=== PATIENT | male | born 1945 | race Caucasian/White ===

== ENCOUNTER 2020-10-18 18:10 | Inpatient (IN) | payer OTHER, MEDICARE, SELFPAY ==
[2020-10-18 18:34] VITALS: BP 127/77; PULSE 118; RESP 22; TEMP 36.7; O2SAT 95; BMI 16.7
--- NOTE | 2020-10-18 20:03 | XRR_ITS ---
PROCEDURE INFORMATION: Exam: XR Left Hip Exam date and time: 10/18/2020 8:03 PM Age: 75 years old Clinical indication: Injury or trauma; Fall; Blunt trauma (contusions or hematomas); Left; Hip; Injury details: Moving boxes fell over on him TECHNIQUE: Imaging protocol: XR Left hip. Views: 2 or 3 views hip with pelvis when performed. Total images: 2 COMPARISON: No relevant prior studies available. FINDINGS: Bones/joints: Mildly displaced intertrochanteric fracture left hip. Mild compression deformity L4 which appears antecedent. Soft tissues: Unremarkable. XR/XR hip LT 2-3V wo/w pel* [id number] IMPRESSION: Mildly displaced intertrochanteric fracture left hip.
--- NOTE | 2020-10-18 20:06 | W.ED.FALL ---
HPI - Fall General: Chief Complaint: Fall Stated Complaint: LEG PAIN POST FALL Time Seen by Provider: 10/18/20 19:48 History of Present Illness: HPI Narrative: 75-year-old gentleman who fell while moving objects out of the back of a truck. He fell from a standing position onto pavement. He is complaining of left lower extremity pain. He localizes the pain mainly to the thigh. He says that he cannot bear weight. He also states that mattress hit him in the head when it fell, but is not complaining of any headache or neurologic symptoms. He did not get knocked out. complaint: fall Onset (ago): hour(s) Fall from: standing Place fall occurred: home Loss of consciousness: None Symptoms prior to fall: none Context: other Location of injury - extremities: Left: thigh Associated symptoms-after fall: Reports no associated symptoms; Denies abdominal pain, chest pain or headache(s) Review of Systems Const: Denies: fever(s) Eyes: Denies: change in vision Card: Denies: chest pain or palpitations Resp: Denies: dyspnea or wheezing GI: Denies: abdominal pain or vomiting Neuro: Denies: headache(s) or dizziness PFSH ED PFSH: Medical History Atelectasis of left lung No pertinent past medical history Surgical History History of hernia surgery History of lung surgery Family History Denies family history of CAD (coronary artery disease) Family history of premature coronary artery disease Social History Smoking and tobacco status: never smoked Alcohol intake: never Substance/Drug Use: never Housing: House Physical Exam Const: GENERAL APPEARANCE: cooperative and frail appearing NUTRITIONAL APPEARANCE: thin ORIENTATION/CONSCIOUSNESS: Yes oriented to person, Yes oriented to place and Yes oriented to time HENMT: COMMON NORMALS: external ears normal and Normal external nose present FACE & SINUS: normal facial exam NOSE: Normal external nose present and No nasal discharge present EXTERNAL EAR: Yes external ears normal Eye: COMMON NORMALS: Equal, round and reactive pupils present, EOMs intact bilaterally and conjunctivae normal EYELID: eyelids normal CONJUNCTIVA: Yes conjunctivae normal PUPIL: Yes Equal, round and reactive pupils present Neck/C-Spine: COMMON NORMALS: full ROM GENERAL: No tracheal deviation CERVICAL SPINE: Yes normal cervical lordosis and No Cervical spine tenderness Chest: COMMONS NORMALS: normal inspection of the chest CHEST: No tenderness Resp: EFFORT & INSPECTION: No tachypneic, No respiratory distress, No retractions, No uses accessory muscles and No tracheal deviation AUSCULTATION: no rhonchi and no wheezes Cardio: COMMON NORMALS: regular rate and regular rhythm RATE: regular rate RHYTHM: regular rhythm HEART SOUNDS: no murmurs PERIPHERAL PULSES: radial pulses present GI: INSPECTION: No abdominal distension AUSCULTATION: No Hyperactive bowel sounds present and No Hypoactive bowel sounds present PALPATION: No Guarding due to palpation present (GI) and No Rigid due to palpation PERCUSSION: no dullness to percussion and no tympanic to percussion Neuro: SENSORIUM/ORIENTATION: Yes oriented to person, Yes oriented to place and Yes oriented to time Psych: COMMON NORMALS: mental status grossly normal Skin: NARRATIVE SKIN EXAM: Small abrasion to the frontal scalp. Small abrasion to the left wrist and elbow. Course Consultations: Consultation #1: Irina Time: 21:06 Consultation #2: Barrera Time: 21:09 Vital Signs: Vital signs: Vital Signs Temperature 98.1 F 10/18/20 22:41 Pulse Rate 93 10/18/20 22:41 Respiratory Rate 17 10/18/20 22:41 Blood Pressure 129/72 10/18/20 22:41 Pulse Oximetry 94 10/18/20 22:41 MDM - Fall MDM Narrative: Medical decision making narrative: 75-year-old male who fell on pavement. He has a intertrochanteric left hip fracture. Labs appear stable. On chest x-ray for clearance, he has a large tension pneumothorax. The patient told us about this prior, and it is several years old. He has actually had a successful hernia surgery despite his pneumothorax which is chronic. Orthopedic surgery, and hospitalist notified. Hospitalist has seen the patient in the ER. Lab Data: Labs: Lab Results 10/18/20 10/18/20 10/18/20 Range/Units 21:04 21:04 21:04 WBC 10.7 H (4.0-10.0) 10^3/ uL RBC 4.71 (4.1-5.3) 10^6/u L Hgb 14.4 (11.7-16.6) g/dL Hct 45.6 (42.0-52.0) % MCV 96.8 H (80-94) fL MCH 30.6 (28.0-34.0) pg MCHC 31.6 (30.0-36.0) g/dL RDW 13.8 (12.1-15.1) % Plt Count 155 (130-400) 10^3/c mm MPV 10.4 (7.4-10.4) fL Neut % (Auto) 83.3 % Lymph % (Auto) 7.6 % [place] % (Auto) 8.3 % Eos % (Auto) 0.0 % Baso % (Auto) 0.4 % Neut # (Auto) 8.89 H (1.8-7.7) 10^3/u L Lymph # (Auto) 0.8 (0.8-4.8) 10^3/u L [place] # (Auto) 0.9 (0.2-0.9) 10^3/u L Eos # (Auto) 0.0 (0.0-0.8) 10^3/u L Baso # (Auto) 0.0 (0.0-0.1) 10^3/u L Nucleated RBC % (a uto) 0 % Nucleated RBCs # 0.0 /100WBC PT 13.70 (12.1-14.9) SECO NDS INR 1.02 (0.8-1.2) APTT 21.5 L (23.9-36.7) SECO NDS Sodium 138 (136-145) mmol/L Potassium 4.4 (3.5-5.1) mmol/L Chloride 100 (98-107) mmol/L Carbon Dioxide 28 (22-29) mmol/L Anion Gap 14.4 (5-19) BUN 14 (8-23) mg/dL Creatinine 0.8 (0.7-1.2) mg/dL GFR Calculation Not Reportable Glucose 146 H (65-115) mg/dL Calculated Osmolal ity 289 (285-295) mOsm/k g Calcium 9.4 (8.5-10.5) mg/dL Magnesium 1.8 (1.7-2.3) mg/dL Total Bilirubin 0.7 (0.15-1.2) mg/dL AST 23 (0-40) U/L ALT 17 (0-41) U/L Alkaline Phosphata se 67 (40-130) IU/L NT-Pro-B Natriuret Pep (0-125) pg/mL Total Protein 7.4 (6.6-8.7) g/dL Albumin 4.1 (3.5-5.2) g/dL Globulin 3.3 (1.3-4.6) g/dL TSH (0.27-4.20) uIU/ mL 10/18/20 10/18/20 Range/Units 21:04 21:04 WBC (4.0-10.0) 10^3/ uL RBC (4.1-5.3) 10^6/u L Hgb (11.7-16.6) g/dL Hct (42.0-52.0) % MCV (80-94) fL MCH (28.0-34.0) pg MCHC (30.0-36.0) g/dL RDW (12.1-15.1) % Plt Count (130-400) 10^3/c mm MPV (7.4-10.4) fL Neut % (Auto) % Lymph % (Auto) % [place] % (Auto) % Eos % (Auto) % Baso % (Auto) % Neut # (Auto) (1.8-7.7) 10^3/u L Lymph # (Auto) (0.8-4.8) 10^3/u L [place] # (Auto) (0.2-0.9) 10^3/u L Eos # (Auto) (0.0-0.8) 10^3/u L Baso # (Auto) (0.0-0.1) 10^3/u L Nucleated RBC % (a uto) % Nucleated RBCs # /100WBC PT (12.1-14.9) SECO NDS INR (0.8-1.2) APTT (23.9-36.7) SECO NDS Sodium (136-145) mmol/L Potassium (3.5-5.1) mmol/L Chloride (98-107) mmol/L Carbon Dioxide (22-29) mmol/L Anion Gap (5-19) BUN (8-23) mg/dL Creatinine (0.7-1.2) mg/dL GFR Calculation Glucose (65-115) mg/dL Calculated Osmolal ity (285-295) mOsm/k g Calcium (8.5-10.5) mg/dL Magnesium (1.7-2.3) mg/dL Total Bilirubin (0.15-1.2) mg/dL AST (0-40) U/L ALT (0-41) U/L Alkaline Phosphata se (40-130) IU/L NT-Pro-B Natriuret Pep 208 H (0-125) pg/mL Total Protein (6.6-8.7) g/dL Albumin (3.5-5.2) g/dL Globulin (1.3-4.6) g/dL TSH 0.85 (0.27-4.20) uIU/ mL Discharge Plan Discharge Patient Disposition: Admitted As Inpatient Admit Provider: Pj Rust Coding Level of Care Code ED Deputy Sheriff Generalist/Bailiff for Chg Fwd Exam Comprehensive
--- NOTE | 2020-10-18 20:51 | XRR_ITS ---
PROCEDURE INFORMATION: Exam: XR Chest Exam date and time: 10/18/2020 8:51 PM Age: 75 years old Clinical indication: Screening exam; Pre-operative exam; Other: Clearance TECHNIQUE: Imaging protocol: XR of the chest. Views: 1 view. Total images: 1 COMPARISON: No relevant prior studies available. FINDINGS: Lungs: Right lung without visible evidence for active interstitial or alveolar airspace disease. COPD/chronic bronchitis. Senile fibrosis. Evidence of antecedent granulomatous disease. Pleural spaces: Examination reveals a large left tension pneumothorax. Near complete collapse of the left lung. Mediastinal shift to the right. Heart/Mediastinum: Cardiac structures and configuration with arteriosclerosis. Microcardia. Bones/joints: Unremarkable. XR/XR chest 1V portable [id number] IMPRESSION: Large left tension pneumothorax.
--- NOTE | 2020-10-18 20:52 | ECG_ITS ---
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 Measurements Intervals [place] Rate: 92 P: 64 VT: 141 QRS: 66 QRSD: 93 T: 56 QT: 338 QTc: 418 Interpretive Statements SINUS RHYTHM No previous ECG available for comparison Electronically Signed On 10-19-2020 7:21:33 CDT by Sally Eller M.D. [id number]
[2020-10-18 21:01] VITALS: BP 127/64; PULSE 107; RESP 19; O2SAT 96
[2020-10-18] MEDS: ondansetron 2 mg/ML SDV 2 mL 4 MG IVP (21:05)
[2020-10-18] MEDS: sodium chloride 0.9% 500 ML IV (21:05)
[2020-10-18] MEDS: morphine 4 mg/mL SDV 1 mL IVP (21:05)
--- NOTE | 2020-10-18 21:11 | P.HP_ITS ---
Providers/Chief Complaint Chief Complaint: LEG PAIN POST FALL History of Present Illness Ian Matt is a 75 year old male who endorses history of left lung pneumothorax and atelectasis after [place] fever in [place], he does not have any other significant past medical history, no coronary artery disease, CHF NV stroke, cancer, or diabetes presented today after sustaining a fall. Patient is stating that in 2019 he underwent left inguinal hernia repair, he required chest tube placement for pneumothorax(patient is stating that surgeon delayed surgery because of his pneumothorax until he developed inguinal hernia incarceration) however he was discharged from the hospital after his surgery within 4 days without any other postop complications. 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 He was brought t o the ER for further evaluation., He was diagnosed with left intertrochanteric hip fracture., Chest x-ray showing pneumothorax. I requested EKG, CBC BMP unremarkable. Patient hemodynamically stable, Dr. Arevalo notified and consulted. Review of Systems Const: Denies: fever(s) Eyes: Denies: change in vision ENMT: Denies: throat pain Card: Denies: chest pain Resp: Denies: dyspnea GI: Denies: abdominal pain : Denies: flank pain Musc: Reports: joint pain and limited range of motion; Denies: neck pain Skin/Breast: Denies: rash Neuro: Denies: headache(s) Psych: Denies: anxiety Endo: Denies: polyuria Morgan/Lymph: Denies: easy bruising All/Imm: Denies: urticaria Medications/Allergies Allergies Allergy/AdvReac Type Severity Reaction Status Date / Time No Known Allergies Allergy Verified 10/18/20 18:49 PFSH Acute PFSH: Medical History Atelectasis of left lung No pertinent past medical history Surgical History History of hernia surgery History of lung surgery Family History Denies family history of CAD (coronary artery disease) Family history of premature coronary artery disease Social History Smoking and tobacco status: never smoked Alcohol intake: never Substance/Drug Use: never Housing: House Vitals/I&O/Wt Last Vital Signs Temp 98.1 F 10/18/20 18:34 Pulse 107 H 10/18/20 21:01 Resp 19 H 10/18/20 21:01 BP 127/64 10/18/20 21:01 Pulse Ox 96 10/18/20 21:01 Weight last 48 hrs Weight 58.967 kg Physical Exam Narrative: EXAM NARRATIVE: elderly male Who saturating well on room air blood pressure 129/72 mmHg he is afebrile no active distress No head laceration EOMI, PERRLA No neurological deficits S1, S2 distant however no murmur appreciated No sign of heart failure Abdomen soft nontender Low symmetry no edema gangrene ulcer No lower extremity vascular compromise Bilateral breath sounds, diminished airflow left greater than right, chest is not silent during my auscultation Appropriate mood and affect Data : 10/18/20 21:04 10/18/20 21:04 A&P Assessment and plan (1) Hip fracture, left: Left hip fracture Patient sustained a fall while he was unloading furniture from a truck No previous history of NV, CHF, stroke, As per NSQIP estimated length of stay 3.5 to 4 days, He considers himself fairly active for his age, he can take flight of stairs however gets short of breath with prolonged period of exertion, I would like to get echo in the morning before the procedure I am going to obtain records from his hospital in [place] to collect objective evidence of chronic pneumothorax, Chest x-ray does show pneumothorax however he is not hemodynamically unstable, he is saturating well on room air, he has no respiratory distress no JVD will consult clinical research management associate for evaluation of chest tube placement to reduce perioperative complications Would recommend echo and pulmonary consult before his procedure, Dr. Arevalo is planning to operate around 10AM. I will inform fusion juncture grinder and clinical research management associate sports team marketing intern. Status: Acute Attestations Medical Necessity Statement*: Anticipating stay in the hospital cross more than 2 midnights for management of left hip fracture Time Spent in Patient Care: 40mins Coding Level of Care Code Acute Underlay Stitcher for Chg Fwd Diagnoses Hip fracture, left S71.473C
[2020-10-18 21:22] LABS: Basophils % 0.4 %; Hematocrit 45.6 % (42.0-52.0); Hemoglobin 14.4 g/dL (11.7-16.6); Lymphocytes # 0.8 10^3/uL (0.8-4.8); Lymphocytes % 7.6 %; Mean Corpuscular HGB Conc 31.6 g/dL (30.0-36.0); Mean Corpuscular Hemoglobin 30.6 pg (28.0-34.0); Mean Corpuscular Volume 96.8 fL (80-94); Mean Platelet Volume 10.4 fL (7.4-10.4); Monocytes # 0.9 10^3/uL (0.2-0.9); Monocytes % 8.3 %; Neutrophils # 8.89 10^3/uL (1.8-7.7); Neutrophils % 83.3 %; Nucleated Red Blood Cells % 0 %; Platelet Count 155 10^3/cmm (130-400); Red Blood Count 4.71 10^6/uL (4.1-5.3); Red Cell Distribution Width 13.8 % (12.1-15.1); White Blood Count 10.7 10^3/uL (4.0-10.0)
[2020-10-18 21:36] LABS: INR 1.02 (0.8-1.2)
[2020-10-18 21:37] LABS: Partial Thromboplastin Time 21.5 SECONDS (23.9-36.7)
[2020-10-18 21:40] LABS: Alanine Aminotransferase 17 U/L (0-41); Albumin Level 4.1 g/dL (3.5-5.2); Alkaline Phosphatase 67 IU/L (40-130); Aspartate Amino Transferase 23 U/L (0-40); Blood Urea Nitrogen 14 mg/dL (8-23); Calcium 9.4 mg/dL (8.5-10.5); Carbon Dioxide 28 mmol/L (22-29); Chloride 100 mmol/L (98-107); Globulin 3.3 g/dL (1.3-4.6); Glucose 146 mg/dL (65-115); Magnesium 1.8 mg/dL (1.7-2.3); Osmolality Calculated 289 mOsm/kg (285-295); Sodium 138 mmol/L (136-145); Total Bilirubin 0.7 mg/dL (0.15-1.2); Total Protein 7.4 g/dL (6.6-8.7)
[2020-10-18 21:44] LABS: Anion Gap 14.4 (5-19); Potassium 4.4 mmol/L (3.5-5.1)
[2020-10-18 22:06] LABS: Thyroid Stimulating Hormone 0.85 uIU/mL (0.27-4.20)
[2020-10-18 22:13] LABS: Add Urine Microscopic? YES; Bilirubin Urine Neg (Negative); Blood Urine 2+ (Negative); Glucose Urine UA Norm (Normal); Ketones Urine 1+ (Negative); Leukocyte Esterase Urine Negative (Negative); Nitrate Urine Negative (Negative); Protein Urine Neg (Negative); Specific Gravity, Urine 1.015 (1.005-1.030); Urine Appearance Clear (CLEAR); Urine Color Yellow (Yellow); Urobilinogen Urine Norm (Negative); pH Urine 5 (5-7)
[2020-10-18 22:15] LABS: Add Urine Culture? Yes; Bacteria Urine TRACE /hpf; Sperm Urine 1+ /hpf; Squamous Epithelial Cell Urine 0-4 /hpf (0-5); WBC Urine 0-4 /hpf (0-5)
[2020-10-18 22:34] LABS: NT Pro B Type Natriuretic Pept 208 pg/mL (0-125)
[2020-10-18 22:41] VITALS: BP 129/72; PULSE 93; RESP 17; TEMP 36.7; O2SAT 94
[2020-10-18] MEDS: dextrose 5%-sod chloride 0.45% 1,000 ML 30 ML IV (22:41)
--- NOTE | 2020-10-18 23:41 | ECG_ITS ---
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 Measurements Intervals [place] Rate: 91 P: 66 TN: 135 QRS: 59 QRSD: 92 T: 63 QT: 338 QTc: 417 Interpretive Statements SINUS RHYTHM Compared to ECG 10/18/2020 21:32:46 No significant changes Electronically Signed On 10-20-2020 9:46:56 CDT by Monroe Clarke M.D. [id number]
[2020-10-19] VITALS (35 sets, daily range): BP systolic 89–135; BP diastolic 58–74; PULSE 71–107; RESP 13–34; TEMP 36.4–36.9; O2SAT 90–100
--- NOTE | 2020-10-19 | SCC_ITS ---
Procedure Done: Open reduction internal fixation left intertrochanteric hip fracture internal fixation left 133.6 seconds of fluoroscopic guidance, for a cumulative dose of 9.50 mGy, was provided to Dr. Arevalo by the radiology department. C-arm images of the LEFT hip were saved for the patient's permanent record. [facility]
--- NOTE | 2020-10-19 00:03 | CTR_ITS ---
PROCEDURE INFORMATION: Exam: CT Chest Without Contrast; Diagnostic Exam date and time: 10/19/2020 12:03 AM Age: 75 years old Clinical indication: Condition or disease; Lung condition and disease; Chronic/persistent air leak; Patient HX: Patient has a left pneumothorax x 5-6 years, . having RT hip surgery tomorrow morning TECHNIQUE: Imaging protocol: Diagnostic computed tomography of the chest without contrast. Radiation optimization: All CT scans at this facility use at least one of these dose optimization techniques: automated exposure control; mA and/or kV adjustment per patient size (includes targeted exams where dose is matched to clinical indication); or iterative reconstruction. COMPARISON: CR (CHEST, ) 10/18/2020 9:00 PM RADIATION DOSE METRICS: Total DLP (mGy-cm): 533.08 FINDINGS: Lungs: Small residual aerated left lung. Pleural spaces: Moderate posterior left pleural fluid collection with essentially 100% left pneumothorax. Heart: Large tension hydropneumothorax with shift of the heart and mediastinum to the right and depressed left hemidiaphragm. Severe calcified coronary artery disease. Aorta: Unremarkable. No aortic aneurysm. Lymph nodes: Unremarkable. No enlarged lymph nodes. Kidneys and ureters: One or more nonobstructing left renal calyceal stones. Bones/joints: Dextroscoliosis. Soft tissues: Unremarkable. CT/CT chest wo con [id number] IMPRESSION: 1. Large tension hydropneumothorax with shift of the heart and mediastinum to the right and depressed left hemidiaphragm. 2. Moderate posterior left pleural fluid collection with essentially 100% left pneumothorax. 3. Small residual aerated left lung. Radiation Dose CTDIVOL = (mGy): DLP = 533.08 (mGy-cm)
--- NOTE | 2020-10-19 01:39 | PC.NURSE ---
0130 - Admitted to ICU room 2 from room 266 on Med surg floor as ordered. Transferred to ICU bed, patient reports moderate pain to left hip with movement. Connected to drafting layout man, full assessment done. Patient notified of move to ICU -2. Patient states that he just wants to get some sleep. Call light placed at patients side and instructed to call for any needs.
[2020-10-19] MEDS: dextrose 5%-sod chloride 0.45% 1,000 ML 30 ML IV (03:23)
[2020-10-19] MEDS: morphine 4 mg/mL SDV 1 mL 2 MG IVP ×2 (06:37→21:17)
--- NOTE | 2020-10-19 06:57 | XRR_ITS ---
PROCEDURE INFORMATION: Exam: XR Chest Exam date and time: 10/19/2020 6:57 AM Age: 75 years old Clinical indication: Device placement; Chest tube; Additional info: Chest tube placement TECHNIQUE: Imaging protocol: XR of the chest. Views: 1 view. COMPARISON: CT chest con [id number] 10/19/2020 12:46 AM FINDINGS: Lungs/pleural spaces: Interval placement of left-sided pleural drain. There remains a large left hydropneumothorax compressing the left lung. Degree of pneumothorax is improved since prior but still at least 50%. The right lung is well expanded, again with coarsened interstitial markings but no focal consolidation. No visible effusion or pneumothorax on the right. Surgical clips again noted along the left posterior thorax (projecting just lateral to the aortic knob but noted to be along the posterior pleura on CT). Heart/Mediastinum: No abnormal cardiomediastinal shift. Bones/joints: Unremarkable. XR/XR chest 1V portable [id number] IMPRESSION: Interval placement of left pleural drainage catheter with some improvement in large hydropneumothorax. The left lung remains compressed.
--- NOTE | 2020-10-19 07:04 | PM.ACPR ---
Procedure/Consent Time out: Time Out Performed: Yes Consent: Consent for Procedure: Consent obtained from patient Procedure Narrative: Name of the procedure: Left sided chest tube placement under ultrasound guidance. Indication: Large pneumothorax in the setting of positive pressure ventilation that will be required for left hip fracture surgery Medications: Lidocaine 1% 10 mL. Consent: Obtained from patient. Description of the procedure: An ultrasound was performed to evaluate for lack of pleural movement. The M-mode ultrasound revealed barcode sign consistent with a diagnosis of pneumothorax. The skin, subcutaneous tissue and the pleura was anesthetized with 1% lidocaine. Needle was advanced till air bubbles are noted. Using Seldinger technique the left-sided chest tube was put in. The chest tube was secured with suture and transparent dressing. Sample: The left-sided pleural fluid was sent for cell count and differential, Gram stain culture, AFB stain and culture, fungal stain and culture, pH, glucose, LDH, total protein, triglyceride. Complications: None. Acute Procedures Epistaxis Control: Time out performed: Yes
--- NOTE | 2020-10-19 07:14 | PM.CONSULT ---
Providers/Reason For Consult Consulting Physician/Specialty*: Pulmonary critical care medicine Reason for Consult*: Left-sided pneumothorax Attending Physician: Pj Rust MD History of Present Illness History of Present Illness Ian Matt is a 75 year old male who presented to the hospital after sustaining left hip fracture while moving his furniture from the truck. 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 After he presented to the hospital, a chest x-ray was obtained and the patient was seen to have a large left-sided pneumothorax with some evidence of mediastinal shift to the right. However, the patient was not very symptomatic. His blood pressure was stable, he was not tachycardic and oxygen saturation was normal. The patient underwent a CT scan of the chest as well. There is a large left-sided pneumothorax with near total collapse of the left lung. 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 This diagnosis was made from the pleural biopsy. The patient in 2019 underwent an inguinal hernia surgery. The patient tells me that when he was evaluated prior to the surgery he was found to have a left-sided pneumothorax. He underwent chest tube placement for the hernia surgery. However, his lung never completely expanded. He followed up with the distribution engineering technologist and was told that no intervention was necessary in the lung was not going to expand. 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 Unfortunately, I do not have any of these record or radiologic images. It is difficult for me to ascertain whether the degree of pneumothorax that is present today was the same from 2 years ago or whether there is new worsening compared to before. The patient was seen and examined in the ICU. The patient was resting comfortably. He is tentatively scheduled for his hip surgery later today. Review of Systems Narrative: General: No fevers chills night sweats or fatigue Skin: No rash HEENT: No nasal congestion, rhinitis, sinusitis, sneezing, hoarseness of voice Neck: There is no neck swelling, mass or swollen glands. Respiratory: No cough, sputum production or wheezing, mild shortness of breath especially with exertion. Cardiovascular: No chest pain, orthopnea or paroxysmal nocturnal dyspnea, no palpitation palpitation or lower extremity edema. Gastrointestinal: No abdominal pain, nausea, vomiting Musculoskeletal: Limited range of motion in the left hip Neurological: Patient is awake alert and oriented x3, no paralysis, gross motor function is normal except left lower extremity. Psychiatric: No anxiety or depression Meds/Allergies Home Medications and Allergies Allergies Allergy/AdvReac Type Severity Reaction Status Date / Time No Known Allergies Allergy Verified 10/18/20 18:49 Current Medications Current Medications Generic Name Dose Route Start Last Admin Trade Name Freq PRN Reason Stop Dose Admin Dextrose/Sodium Chloride 1,000 mls @ 30 mls/hr 10/18/20 22:31 10/19/20 03:23 Dextrose 5%-Sod Chloride 0.45% IV 30 mls/hr .Q24H YOSSI Administration Morphine Sulfate 2 mg 10/18/20 22:31 10/19/20 06:37 Morphine 4 Mg/Ml Sdv 1 Ml IVP 2 mg Q4H PRN Administration pain PFSH Acute PFSH: Medical History Atelectasis of left lung No pertinent past medical history Surgical History History of hernia surgery History of lung surgery Family History Denies family history of CAD (coronary artery disease) Family history of premature coronary artery disease Social History Smoking and tobacco status: never smoked Alcohol intake: never Substance/Drug Use: never Housing: House Vitals/I&O/Wt Last Vital Signs Temp 98.2 F 10/19/20 06:00 Pulse 87 10/19/20 06:15 Resp 22 H 10/19/20 06:37 BP 103/60 10/19/20 06:00 Pulse Ox 97 10/19/20 06:37 10/18/20 10/19/20 10/19/20 22:59 06:59 14:59 Intake Total 500 / 500 141 / 641 Output Total 500 / 500 Balance 500 / 500 -359 / 141 Weight last 48 hrs Weight 130 lb Physical Exam Narrative: EXAM NARRATIVE: General: Patient is awake alert and oriented, in no distress. The patient appears cachectic Neck: No JVD Respiratory: Inspection: Reduced movement in the left hemithorax with respiration Palpation: Trachea is mildly deviated to the right, reduced expansion on the left hemithorax Percussion: Hypertympanic to percussion on the left Auscultation: Minimal breath sound on the left, no crackles wheezing or rhonchi Cardiovascular: Regular rate and rhythm, S1-S2 present, no murmur, no peripheral edema. Abdomen: Soft, nontender, nondistended, positive bowel sound Musculoskeletal: Pain with mobility of the left lower extremity Skin: No rash, no evidence of erythema nodosum or multiforme. Neuro: Mental status is normal, no gross cranial nerve deficit, normal motor and coordination. Urinary Catheter Management^: Monteiro: Cath Placed During This Visit: no Reason for Continuing Indwelling Catheter: Accurate Measurement of Urinary Output in Critically Ill Patients Data Other Data: Attestation for Other Data: I personally reviewed and interpreted the following: Other data: I have reviewed the patient laboratory, microbiologic and radiologic data. Please see the HPI for details. A&P Assessment and plan (1) Pneumothorax: This is a 75-year-old gentleman who presented to the hospital after sustaining a fall which caused him to have mildly displaced left intertrochanteric hip fracture. The patient was found to have a large left-sided pneumothorax with mild shift of the mediastinum to the right. However, the patient is hemodynamically stable and not hypoxic. 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 However, I do not have any of his previous record and there is a possibility that the patient has developed a new pneumothorax on top of what he had from before. I have discussed this with the patient in detail. The patient is going to undergo general anesthesia for the hip procedure and will be exposed to positive pressure ventilation. If the patient does have any air leak this could complicate the pneumothorax significantly. I would insert a chest tube however, I doubt the patient is can have full opposition of the lung with the chest wall. If it does happen, I would likely perform pleurodesis. However, if that does not happen, the patient will likely have pressure dependent pneumothorax and I will remove the chest tube as soon as possible after the surgical intervention for his hip. Also in the pleural fluid for studies. Thank you for the consultation. I will continue to follow the patient. Status: Acute Coding Level of Care Code Acute Internal Affairs Investigator for Chg Fwd Diagnoses Pneumothorax J93.9
--- NOTE | 2020-10-19 07:24 | PC.NURSE ---
Consent obtained per Dr. Harkins at bedside for chest tube insertion. Time out done. Chest tube inserted using sterile technique per Dr. Harkins, connected to low intermittent suction. Specimen collected using sterile technique and sent to lab.
[2020-10-19 07:49] LABS: Body Fluid WBC 44650 /uL; Monocytes # Body Fluid 3.662; Mononuclear %, Pleural Fluid 8 %; Polynuclear Cells, Pleural % 92 %
[2020-10-19 07:54] LABS: Apprearance, Body Fluid TURBID; Color, Body Fluid YELLOW
[2020-10-19 08:19] LABS: Appearance, Pleural Fluid TURBID (CLEAR); Color, Pleural Fluid Yellow (Pale Yellow); PATH Referal YES; PATH Referral YES
[2020-10-19 08:27] LABS: Total Protein Pleural Fluid 8.2 g/dL; Triglycerides, Pleural Fluid 150 mg/dL
[2020-10-19 08:35] LABS: LDH Pleural Fluid 1534 U/L
--- NOTE | 2020-10-19 12:25 | PC.NURSE ---
Dr. Arevalo in room visiting with pt, explaining procedure and the risks of. Consent signed and put in chart.
--- NOTE | 2020-10-19 12:29 | P.CONIM_ITS ---
Providers/Reason For Consult Consulting Physician/Specialty*: Fay Arevalo MD Reason for Consult*: Left Intertrochanteric Hip Fracture Requesting Physician: Marques Zambrano DO Attending Physician: Jo Devine MD History of Present Illness History of Present Illness Ian Matt is a 75 year old male who has a history of left pneumothorax and atelectasis after an illness he developed in [place]. Recently, reportedly within the past month, he moved from [place] here to [place] so that he could be with his family. He was helping the movers unload his luggage when a piece of furniture fell and hit him causing him to lose his balance. He fell onto his left side. He was brought to the emergency department for further evaluation where he was found to have a left intertrochanteric hip fracture. Chest x-ray was consistent with pneumothorax and consistent with the patient's h istory. He has previously had surgery, but this did require chest tube placement prior to undertaking the surgical procedure. Review of Systems Narrative: General: No fevers chills night sweats or fatigue Skin: No rash HEENT: No nasal congestion, rhinitis, sinusitis, sneezing, hoarseness of voice Neck: There is no neck swelling, mass or swollen glands. Respiratory: No cough, sputum production or wheezing, mild shortness of breath especially with exertion. Cardiovascular: No chest pain, orthopnea or paroxysmal nocturnal dyspnea, no palpitation palpitation or lower extremity edema. Gastrointestinal: No abdominal pain, nausea, vomiting Musculoskeletal: Limited range of motion in the left hip Neurological: Patient is awake alert and oriented x3, no paralysis, gross motor function is normal except left lower extremity. Psychiatric: No anxiety or depression Const: Denies: fever(s) Eyes: Denies: change in vision ENMT: Denies: throat pain Card: Denies: chest pain or palpitations Resp: Denies: dyspnea or wheezing GI: Denies: abdominal pain or vomiting : Denies: flank pain Musc: Reports: joint pain and limited range of motion; Denies: neck pain Skin/Breast: Denies: rash Neuro: Denies: headache(s) or dizziness Psych: Denies: anxiety Endo: Denies: polyuria Morgan/Lymph: Denies: easy bruising All/Imm: Denies: urticaria Meds/Allergies Home Medications and Allergies Home Medications Medication Instructions Recorded Confirmed Last Taken Type No Known Home Medications 10/19/20 10/19/20 Unknown History Allergies Allergy/AdvReac Type Severity Reaction Status Date / Time No Known Allergies Allergy Verified 10/18/20 18:49 Current Medications Current Medications Generic Name Dose Route Start Last Admin Trade Name Freq PRN Reason Stop Dose Admin Dextrose/Sodium Chloride 1,000 mls @ 30 mls/hr 10/18/20 22:31 10/19/20 03:23 Dextrose 5%-Sod Chloride 0.45% IV 30 mls/hr .Q24H YOSSI Administration Morphine Sulfate 2 mg 10/18/20 22:31 10/19/20 06:37 Morphine 4 Mg/Ml Sdv 1 Ml IVP 2 mg Q4H PRN Administration pain Senna/Docusate Sodium 1 tab 10/19/20 09:00 10/19/20 09:28 Sennosides-Docusate Tablet PO Not Given DAILY YOSSI PFSH Acute PFSH: Medical History Atelectasis of left lung No pertinent past medical history Surgical History History of hernia surgery History of lung surgery Family History Denies family history of CAD (coronary artery disease) Family history of premature coronary artery disease Social History Smoking and tobacco status: never smoked Alcohol intake: never Substance/Drug Use: never Housing: House Vitals/I&O/Wt Last Vital Signs Temp 98.1 F 10/19/20 11:00 Pulse 73 10/19/20 11:00 Resp 20 H 10/19/20 11:00 BP 120/60 10/19/20 11:00 Pulse Ox 95 10/19/20 11:00 10/18/20 10/19/20 10/19/20 22:59 06:59 14:59 Intake Total 500 / 500 141 / 641 Output Total 500 / 500 400 / 400 Balance 500 / 500 -359 / 141 -400 / -400 Weight last 48 hrs Weight 130 lb Physical Exam Const: COMMON NORMALS: no acute distress, average body habitus, patient oriented x3 and alert GENERAL APPEARANCE: cooperative and comfortable ORIENTATION/CONSCIOUSNESS: Yes awake HENMT: COMMON NORMALS: normocephalic and atraumatic HEAD & SCALP: normocephalic and atraumatic Eye: GENERAL EYE: appearance normal, both eyes and all related structures Chest: CHEST: Yes abnormal inspection of the chest (Left chest tube in place) Resp: EFFORT & INSPECTION: Yes able to speak in complete sentences Extremity: LEFT LOWER EXTREMITY: Yes hip joint (Tender to palpation.) Left hip: Yes inspection (No significant ecchymosis.), Yes ROM (Not evaluated.) and Yes neurovascular exam (Intact distally.) Neuro: COMMON NORMALS: patient oriented x3 SENSORIUM/ORIENTATION: Yes alert Psych: COMMON NORMALS: mental status grossly normal APPEARANCE: Yes grossly normal ATTITUDE: Yes calm and Yes engaged ATTENTION/CONCENTRATION: Yes attention grossly intact Skin: COMMON NORMALS: no rashes or lesions noted GENERAL SKIN EXAM: no rashes or lesions noted Urinary Catheter Management^: Monteiro: Cath Placed During This Visit: no Reason for Continuing Indwelling Catheter: Accurate Measurement of Urinary Output in Critically Ill Patients Data Micro: Micro: Microbiology 10/19/20 06:58 Gram Stain - Final Pleural Fluid Imaging^: Xray Ortho: I personally reviewed and interpreted this imaging study as follows: My impression: I have personally reviewed AP and lateral imaging studies of the patient's left hip. He does have a minimally displaced intertrochanteric hip fracture. A&P Assessment and plan (1) Closed intertrochanteric fracture of left hip: This 75-year-old gentleman was admitted through the emergency department with diagnosis of a left intertrochanteric hip fracture subsequent to a fall. The patient denied loss of consciousness or syncope. He has a complicating medical history which involves a left numb pneumothorax and atelectasis. Apparently, this is chronic and recurring. He required chest tube placement prior to inguinal hernia repair about a year ago. Currently, the patient has been evaluated by the pulmonary service. Chest tube has been placed. And the patient is felt to have been cleared for surgical intervention. Discussion was undertaken with the patient regarding and hold the fracture while it heals. Risks and complications are discussed and the patient consents for surgery. Status: Acute Qualifiers: Encounter type: initial encounter Fracture alignment: displaced Qualified Code(s): S72.142A - Displaced intertrochanteric fracture of left femur, initial encounter for closed fracture Coding Level of Care Code Acute Manager Combination for g Fwd Exam Detailed Diagnoses Closed intertrochanteric fracture of left hip S72.142A Encounter type: initial encounter Fracture alignment: displaced
[2020-10-19 12:34] LABS: Basophils % 0.4 %; Eosinophils % 0.1 %; Hematocrit 42.9 % (42.0-52.0); Hemoglobin 13.9 g/dL (11.7-16.6); Lymphocytes # 1.2 10^3/uL (0.8-4.8); Lymphocytes % 14.3 %; Mean Corpuscular HGB Conc 32.4 g/dL (30.0-36.0); Mean Corpuscular Hemoglobin 30.6 pg (28.0-34.0); Mean Corpuscular Volume 94.5 fL (80-94); Mean Platelet Volume 10.6 fL (7.4-10.4); Monocytes # 0.9 10^3/uL (0.2-0.9); Monocytes % 10.8 %; Neutrophils # 5.98 10^3/uL (1.8-7.7); Nucleated Red Blood Cells % 0 %; Platelet Count 139 10^3/cmm (130-400); Red Blood Count 4.54 10^6/uL (4.1-5.3); Red Cell Distribution Width 13.9 % (12.1-15.1); White Blood Count 8.1 10^3/uL (4.0-10.0)
[2020-10-19 12:49] LABS: Anion Gap 13.5 (5-19); Blood Urea Nitrogen 15 mg/dL (8-23); Carbon Dioxide 28 mmol/L (22-29); Chloride 102 mmol/L (98-107); Glucose 103 mg/dL (65-115); Osmolality Calculated 289 mOsm/kg (285-295); Potassium 4.5 mmol/L (3.5-5.1); Sodium 139 mmol/L (136-145)
--- NOTE | 2020-10-19 12:49 | PM.PN ---
Subjective Subjective: Interval history: 75 year old male who endorses history of left lung pneumothorax and atelectasis after valley fever in [place], he does not have any other significant past medical history, no coronary artery disease, CHF DC stroke, cancer, or diabetes presented today after sustaining a fall. Patient is stating that in 2019 he underwent left inguinal hernia repair, he required chest tube placement for pneumothorax(patient is stating that surgeon delayed surgery because of his pneumothorax until he developed inguinal hernia incarceration) however he was discharged from the hospital after his surgery within 4 days without any other postop complications. 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 He was brought to the ER for further evaluation., He was diagnosed with left intertrochanteric hip fracture., Chest x-ray showing pneumothorax. I requested EKG, CBC BMP unremarkable. Patient hemodynamically stable, Dr. Arevalo notified and consulted. 10/19/20 Patient was seen prior to OR Chest tube in place Draining Air leak D/w Dr. Arevalo, & anesthesia Vitals/I&O/Wt Last Vital Signs Temp 98.1 F 10/19/20 11:00 Pulse 74 10/19/20 15:00 Resp 21 H 10/19/20 15:00 BP 107/63 10/19/20 15:00 Pulse Ox 95 10/19/20 14:57 10/19/20 10/19/20 10/19/20 06:59 14:59 22:59 Intake Total 141 / 641 100 / 100 Output Total 500 / 500 400 / 400 325 / 725 Balance -359 / 141 -400 / -400 -225 / -625 Weight last 48 hrs Weight 58.967 kg Physical Exam Narrative: EXAM NARRATIVE: General : Alert, awake, NAD HEENT: Grossly unremarkable Chest: Non-labored respiration - R. Sided Chest tube in place CVS; NSR ABD: Non-distended Ext: Left Hip Fx Urinary Catheter Management^: Monteiro: Cath Placed During This Visit: no Reason for Continuing Indwelling Catheter: Accurate Measurement of Urinary Output in Critically Ill Patients Data : 10/19/20 12:23 10/19/20 12:23 Micro: Microbiology 10/19/20 06:58 Gram Stain - Final Pleural Fluid A&P Assessment and plan (1) Pneumothorax: Pulmonary on board s/p R.sided chest tube Air leak noted Monitor draining Managment per pulm Status: Acute (2) Closed intertrochanteric fracture of left hip: Plan to go to OR today Pain control Management per ortho Status: Acute Qualifiers: Encounter type: initial encounter Fracture alignment: displaced Qualified Code(s): S72.142A - Displaced intertrochanteric fracture of left femur, initial encounter for closed fracture Attestations Medical Necessity Statement*: Require further hospitalization for management of postop care andPneumothorax requiring chest tube Time Spent in Patient Care: Greater than 35 minutes (>than 50% of time spent in counselling and/or direct pt care on unit). Coding Level of Care Code Acute Care Technician for Jennifer Watson Diagnoses Pneumothorax J93.9 Closed intertrochanteric fracture of left hip S72.142A Encounter type: initial encounter Fracture alignment: displaced
--- NOTE | 2020-10-19 13:01 | P.ANESASSM_ITS ---
Pre-Anesthetic Assessment Pre-Anesthetic Assessment: Height/Weight: Height 1.88 m Weight 58.967 kg Temp Pulse Resp BP Pulse Ox 98.1 F 73 20 H 120/60 95 10/19/20 11:00 10/19/20 11:00 10/19/20 11:00 10/19/20 11:00 10/19/20 11:00 Preop Diagnosis: Left intertrochanteric hip fracture Proposed Procedure: Operation Date: 10/19/20 13:00 Proposed Procedures p Trochanteric Femoral Nail - Gamma Nail(Left) - Fay Arevalo MD Familial anesthetic complications: none Was Beta Eric taken within 24 hours: N/A Was Clonidine taken within 24 hours: N/A Last intake: Intake Last Liquid Date 10/18/20 Last Liquid Time 20:00 Last Solid Date 10/18/20 Last Solid Time 20:00 Social: Social History: No alcohol and No tobacco Exam: Pre-Anes Outpt Exam: alert, oriented x 3 and regular rate & rhythm Additional Exam Findings (including area of procedure): PTX Airway: Cervical ROM: WNL MP: 2 Dentition: Other (chipped/rotting) Pulmonary: Comments: coccidiomyocsis, 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 Chest tube placed this morning CV/HEM: Comments: ECho CONCLUSIONS 1. Normal LV size with borderline low ejection fraction of 50 to 55%. 2. Wall motion abnormalities as mentioned above. 3. Possible large left-sided pleural effusion 4. Minimally thickened aortic and mitral valves. 5. There is no pericardial effusion. 6.There are no intracardiac masses. No previous study is available for comparison. Anesthetic Plan: ASA status: 4 Anesthesia: MAC and Regional (specify below) (spinal) Risk of > 500 ml blood loss (7ml/kg in children): No Meds/Allergies Current Medications: Current Medications Generic Name Dose Route Start Last Admin Trade Name Freq PRN Reason Stop Dose Admin Dextrose/Sodium Ch loride 1,000 mls @ 30 ml s/hr 10/18/20 22:31 10/19/20 03:23 Dextrose 5%-Sod Chloride 0.45% IV 30 mls/hr .Q24H YOSSI Administration Morphine Sulfate 2 mg 10/18/20 22:31 10/19/20 06:37 Morphine 4 Mg/Ml Sdv 1 Ml IVP 2 mg Q4H PRN Administration pain Senna/Docusate Sod ium 1 tab 10/19/20 09:00 10/19/20 09:28 Sennosides-Docus ate Tablet PO Not Given DAILY YOSSI PFSH Anesthesia PFSH: Medical History Atelectasis of left lung No pertinent past medical history Surgical History History of hernia surgery History of lung surgery Family History Denies family history of CAD (coronary artery disease) Family history of premature coronary artery disease Social History Smoking and tobacco status: never smoked Alcohol intake: never Substance/Drug Use: never Housing: House Data Anesthesia CBC & Chem 7: 10/19/20 12:23 10/19/20 12:23 Other Labs: Laboratory Results - last 48 hr 10/18/20 10/18/20 10/18/20 21:04 21:04 21:04 WBC 10.7 H RBC 4.71 Hgb 14.4 Hct 45.6 MCV 96.8 H MCH 30.6 MCHC 31.6 RDW 13.8 Plt Count 155 MPV 10.4 Neut % (Auto) 83.3 Lymph % (Auto) 7.6 Wise % (Auto) 8.3 Eos % (Auto) 0.0 Baso % (Auto) 0.4 Neut # (Auto) 8.89 H Lymph # (Auto) 0.8 Wise # (Auto) 0.9 Eos # (Auto) 0.0 Baso # (Auto) 0.0 Nucleated RBC % (auto) 0 Total Counted Nucleated RBCs # 0.0 Differential Comment PT 13.70 INR 1.02 APTT 21.5 L Sodium 138 Potassium 4.4 Chloride 100 Carbon Dioxide 28 Anion Gap 14.4 BUN 14 Creatinine 0.8 GFR Calculation Not Reportable Glucose 146 H Calculated Osmolality 289 Calcium 9.4 Magnesium 1.8 Total Bilirubin 0.7 AST 23 ALT 17 Alkaline Phosphatase 67 NT-Pro-B Natriuret Pep Total Protein 7.4 Albumin 4.1 Globulin 3.3 TSH Urine Color Urine Appearance Urine pH Ur Specific [place] Urine Protein Urine Glucose (UA) Urine Ketones Urine Blood Urine Nitrate Urine Bilirubin Urine Urobilinogen Ur Leukocyte Esterase Urine RBC Urine WBC Ur Squamous Epith Cells Amorphous Sediment Urine Bacteria Urine Sperm Fluid Color Fluid Appearance Fluid WBC Fluid RBC Fld Polynuclear WBCs # Fld Polynuclear WBCs % Fl Mononucl WBCs #(Auto) Fl Mononuclear % Auto Pleural Color Pleural Appearance Pleural pH Pleural WBC Pleural RBC Pleural Other Cells Pleural Polynuclear % Pleural Mononuclear % Pleural Total Protein Pleural LDH Pleural Glucose Pleural Triglycerides Path Cons w/Slide 10/18/20 10/18/20 10/18/20 21:04 21:04 21:30 WBC RBC Hgb Hct MCV MCH MCHC RDW Plt Count MPV Neut % (Auto) Lymph % (Auto) Wise % (Auto) Eos % (Auto) Baso % (Auto) Neut # (Auto) Lymph # (Auto) Wise # (Auto) Eos # (Auto) Baso # (Auto) Nucleated RBC % (auto) Total Counted Nucleated RBCs # Differential Comment PT INR APTT Sodium Potassium Chloride Carbon Dioxide Anion Gap BUN Creatinine GFR Calculation Glucose Calculated Osmolality Calcium Magnesium Total Bilirubin AST ALT Alkaline Phosphatase NT-Pro-B Natriuret Pep 208 H Total Protein Albumin Globulin TSH 0.85 Urine Color Yellow Urine Appearance Clear Urine pH 5 Ur Specific [place] 1.015 Urine Protein Neg Urine Glucose (UA) Norm Urine Ketones 1+ H Urine Blood 2+ H Urine Nitrate Negative Urine Bilirubin Neg Urine Urobilinogen Norm Ur Leukocyte Esterase Negative Urine RBC 10-15 H Urine WBC 0-4 H Ur Squamous Epith Cells 0-4 H Amorphous Sediment Not Reportable Urine Bacteria Trace Urine Sperm 1+ Fluid Color Fluid Appearance Fluid WBC Fluid RBC Fld Polynuclear WBCs # Fld Polynuclear WBCs % Fl Mononucl WBCs #(Auto) Fl Mononuclear % Auto Pleural Color Pleural Appearance Pleural pH Pleural WBC Pleural RBC Pleural Other Cells Pleural Polynuclear % Pleural Mononuclear % Pleural Total Protein Pleural LDH Pleural Glucose Pleural Triglycerides Path Cons w/Slide 10/19/20 10/19/20 10/19/20 06:58 12:23 12:23 WBC 8.1 RBC 4.54 Hgb 13.9 Hct 42.9 MCV 94.5 H MCH 30.6 MCHC 32.4 RDW 13.9 Plt Count 139 MPV 10.6 H Neut % (Auto) 74.0 Lymph % (Auto) 14.3 Wise % (Auto) 10.8 Eos % (Auto) 0.1 Baso % (Auto) 0.4 Neut # (Auto) 5.98 Lymph # (Auto) 1.2 Wise # (Auto) 0.9 Eos # (Auto) 0.0 Baso # (Auto) 0.0 Nucleated RBC % (auto) 0 Total Counted Not Reportable Nucleated RBCs # 0.0 Differential Comment Yes PT INR APTT Sodium 139 Potassium 4.5 Chloride 102 Carbon Dioxide 28 Anion Gap 13.5 BUN 15 Creatinine 0.8 GFR Calculation Not Reportable Glucose 103 Calculated Osmolality 289 Calcium 9.0 Magnesium Total Bilirubin AST ALT Alkaline Phosphatase NT-Pro-B Natriuret Pep Total Protein Albumin Globulin TSH Urine Color Urine Appearance Urine pH Ur Specific [place] Urine Protein Urine Glucose (UA) Urine Ketones Urine Blood Urine Nitrate Urine Bilirubin Urine Urobilinogen Ur Leukocyte Esterase Urine RBC Urine WBC Ur Squamous Epith Cells Amorphous Sediment Urine Bacteria Urine Sperm Fluid Color Yellow Fluid Appearance Turbid Fluid WBC 25371 Fluid RBC 276.000 Fld Polynuclear WBCs # 40.988 Fld Polynuclear WBCs % 91.800 Fl Mononucl WBCs #(Auto) 3.662 Fl Mononuclear % Auto 8.200 Pleural Color Yellow H Pleural Appearance Turbid Pleural pH 9.00 H Pleural WBC 15657.000 H Pleural RBC 276.000 Pleural Other Cells Not Reportable Pleural Polynuclear % 92 Pleural Mononuclear % 8 Pleural Total Protein 8.2 Pleural LDH 1534 Pleural Glucose 6.0 Pleural Triglycerides 150 Path Cons w/Slide Yes Micro: Microbiology 10/19/20 06:58 Gram Stain - Final Pleural Fluid Cardiac Studies: No Data to Display
[2020-10-19] MEDS: ceFAZolin 1,000 mg SDV 1000 MG IRRIGATION (14:04)
--- NOTE | 2020-10-19 14:36 | XR_ITS ---
WS: [id number] INTRAOPERATIVE TECHNIQUE: 4 Spot fluoroscopic images for intraoperative purposes. FLUOROSCOPY TIME: 133.6 seconds CLINICAL INFORMATION: OR PICS COMPARISON: None. FINDINGS: Intramedullary kenia and screw fixation left hip. Hardware appears in good position. XR/XR hip LT 2-3V wo/w pel* [id number] IMPRESSION: Images obtained for intraoperative purposes.
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
--- NOTE | 2020-10-19 18:42 | PC.NURSE ---
Pt craft area cleaned. small amount of bloody drainage noted, does not complain of any discomfort. Resting comfortably with fresh water/ice and watching TV
[2020-10-19] MEDS: ceFAZolin 1,000 MG in sodium chloride 0.9% (plus) 50 ML 100 MG IV (20:43)
[2020-10-19] MEDS: acetaminophen 500 mg Tablet 1000 MG PO (20:43)
--- NOTE | 2020-10-19 21:30 | XRR_ITS ---
PROCEDURE INFORMATION: Exam: XR Chest Exam date and time: 10/19/2020 9:30 PM Age: 75 years old Clinical indication: Device placement; Other: Follow up; Additional info: 4 hours post water seal TECHNIQUE: Imaging protocol: XR of the chest. Views: 1 view. COMPARISON: CR (CHEST, ) 10/19/2020 6:54 AM FINDINGS: Tubes, catheters and devices: Left chest tube is in place. Lungs: Visualized portions of the right lung remain clear. Pleural spaces: There is large left pneumothorax slightly larger than on the earlier examination done at 6:57 a.m.. Left pleural effusion may be smaller. Heart/Mediastinum: Unremarkable. No cardiomegaly. Bones/joints: Unremarkable. XR/XR chest 1V portable [id number] IMPRESSION: Increasing left pneumothorax.
--- NOTE | 2020-10-19 21:36 | PC.NURSE ---
1999 - Patient reporting mild pain to left hip and left chest tube site. Repositioned for comfort, patient refusing pain medication at present time. V/S stable. Dressings to left hip clean, dry, and intact. 2116 - Patients pain has increased to left hip and upper leg. Patient has removed the ice pack from left and states he does not want it. Explained to the patient that the ice will help decrease the inflammation and help with the pain. States I do not want it . Tylenol 1000mg given as ordered and patient has had no relief of pain. Patient still not wanting any stronger pain medication. Explained to the patient that if we can get the pain under control he would rest more comfortably. Agrees to morphine for pain. 2mg morphine given IVP for pain and repositioned for comfort again.
--- NOTE | 2020-10-19 22:31 | USCV_ITS ---
Ian Matt Age: 75 Gender: M : 1945 Exam Date: 10/19/2020 07:27 Ordering Phys: Pj Rust MD Technologist: Jolene Pastor Exam Location: [facility] [place] Indication: PRE-OP BP: 103 / 60 HR: 84 Rhythm: Sinus Technical Quality: Technically difficult study MEASUREMENTS (Male / Female) Normal Values 2D ECHO LV Diastolic Diameter PLAX 4.1 cm 4.2 - 5.9 / 3.9 - 5.3 cm LV Systolic Diameter PLAX 3.0 cm LV Chamber Size 4.0 cm IVS Diastolic Thickness 0.9 cm 0.6 - 1.0 / 0.6 - 0.9 cm IVS Systolic Thickness 1.1 cm LVPW Diastolic Thickness 1.0 cm 0.6 - 1.0 / 0.6 - 0.9 cm LVPW Systolic Thickness 1.0 cm RV Chamber Size 2.3 cm LVOT Diameter 1.9 cm LV Ejection Fraction 2D Teich 53.7 % LA Diameter 3.0 cm LA Width 3.0 cm LA Height 5.0 cm RA Width 2.5 cm RA Height 4.4 cm Aorta at Sinotubular Diameter 2.8 cm M-MODE LV Diastolic Diameter MM 5.9 cm 4.2 - 5.9 / 3.9 - 5.3 cm LV Systolic Diameter MM 4.2 cm LV Ejection Fraction MM Teich 55.2 % IVS Diastolic Thickness MM 0.7 cm 0.6 - 1.0 / 0.6 - 0.9 cm IVS Systolic Thickness MM 0.8 cm LVPW Diastolic Thickness MM 0.9 cm 0.6 - 1.0 / 0.6 - 0.9 cm LVPW Systolic Thickness MM 1.4 cm RV Diastolic Diameter MM 1.6 cm Aortic Annulus Diameter 3.7 cm LA Ao Ratio MM 0.9 MV E Point Septal Separation 0.6 cm DOPPLER AV Peak Velocity 102.0 cm/s LVOT Peak Velocity 89.0 cm/s AV Area Cont Eq vti 2.2 cm squared AV Area Cont Eq pk 2.4 cm squared MV Area PHT 4.8 cm squared Mitral E to A Ratio 1.3 MV E' Velocity 67.0 cm/s TV Peak E Velocity 61.0 cm/s Right Atrial Pressure 3.0 mmHg PV Peak Velocity 66.0 cm/s RV Acceleration Time 0.1 s RV Ejection Time 0.3 s RV AcT/ET 0.3 FINDINGS Left Ventricle Mild diffuse hypokinesia of the septum. Normal LV size with slightly diminished ejection fraction of 50 to 55%. Right Ventricle Possibly of normal size and ejection fraction. Could not be visualized well Right Atrium Right atrium not well visualized. Left Atrium Normal left atrial size. Mitral Valve Minimally thickened. Aortic Valve Minimally thickened with no stenosis. Tricuspid Valve No gross abnormalities noted Pulmonic Valve Pulmonic valve not well visualized. Pericardium Large pleural effusion on the left side Aorta Normal aortic annulus size. CONCLUSIONS 1. Normal LV size with borderline low ejection fraction of 50 to 55%. 2. Wall motion abnormalities as mentioned above. 3. Possible large left-sided pleural effusion 4. Minimally thickened aortic and mitral valves. 5. There is no pericardial effusion. 6.There are no intracardiac masses. No previous study is available for comparison. Technical difficult study because of poor apical window Dr Monroe Clarke MD FACC (Electronically Signed) Final Date: 19 October 2020 08:39 S
[2020-10-20] VITALS (13 sets, daily range): BP systolic 89–133; BP diastolic 50–78; PULSE 91–122; RESP 12–26; TEMP 36.6–37.2; O2SAT 92–96
[2020-10-20 04:22] LABS: Basophils % 0.4 %; Eosinophils % 0.2 %; Hematocrit 33.6 % (42.0-52.0); Hemoglobin 10.7 g/dL (11.7-16.6); Lymphocytes % 10.3 %; Mean Corpuscular HGB Conc 31.8 g/dL (30.0-36.0); Mean Corpuscular Hemoglobin 30.8 pg (28.0-34.0); Mean Corpuscular Volume 96.8 fL (80-94); Monocytes % 10.6 %; Neutrophils # 7.59 10^3/uL (1.8-7.7); Neutrophils % 78.3 %; Nucleated Red Blood Cells % 0 %; Platelet Count 140 10^3/cmm (130-400); Red Blood Count 3.47 10^6/uL (4.1-5.3); White Blood Count 9.7 10^3/uL (4.0-10.0)
[2020-10-20] MEDS: ceFAZolin 1,000 MG in sodium chloride 0.9% (plus) 50 ML 100 MG IV ×2 (04:30→13:13)
[2020-10-20 04:40] LABS: Alanine Aminotransferase 11 U/L (0-41); Albumin Level 2.8 g/dL (3.5-5.2); Alkaline Phosphatase 49 IU/L (40-130); Anion Gap 12.8 (5-19); Aspartate Amino Transferase 18 U/L (0-40); Blood Urea Nitrogen 17 mg/dL (8-23); Calcium 7.9 mg/dL (8.5-10.5); Carbon Dioxide 27 mmol/L (22-29); Chloride 103 mmol/L (98-107); Globulin 2.5 g/dL (1.3-4.6); Glucose 113 mg/dL (65-115); Osmolality Calculated 288 mOsm/kg (285-295); Potassium 4.8 mmol/L (3.5-5.1); Sodium 138 mmol/L (136-145); Total Bilirubin 0.5 mg/dL (0.15-1.2); Total Protein 5.3 g/dL (6.6-8.7)
--- NOTE | 2020-10-20 04:41 | PC.NURSE ---
Left upper chest tube clamped as ordered per Dr. Harkins.
--- NOTE | 2020-10-20 07:00 | XRR_ITS ---
PROCEDURE INFORMATION: Exam: XR Chest Exam date and time: 10/20/2020 7:00 AM Age: 75 years old Clinical indication: Condition or disease; Lung condition and disease; Respiratory failure; Status not specified TECHNIQUE: Imaging protocol: XR of the chest. Views: 1 view. COMPARISON: Most recent CR (CHEST, ) 10/19/2020 9:55 PM FINDINGS: Lungs and pleural spaces: Large left pneumothorax redemonstrated with no improvement since most recent prior. Left pleural drain appears unchanged in position in the interval. The left lung is largely collapsed. No left pleural effusion is identified. No right lung consolidation. No right-sided effusion or pneumothorax visible. Heart/Mediastinum: The heart and mediastinal structures are again shifted rightward. Bones/joints: Unremarkable. XR/XR chest 1V portable [id number] IMPRESSION: Large left pneumothorax redemonstrated, without improvement since most recent comparison. Unchanged appearance of left pleural drain. There is again evidence of tension with the heart and mediastinal structures shifted rightward.
[2020-10-20] MEDS: oxyCODONE 5 mg IR Tab/Cap PO (10:51)
--- NOTE | 2020-10-20 13:48 | P.PN_ITS ---
Subjective Subjective: Interval history: The patient was seen and examined today. He is doing well. Currently on room air. No hemodynamic instability. The pneumothorax has remained the same size without any suction as well as after clamping the chest tube. Interestingly, the pleural fluid is consistent with neutrophil predominant exudative pleural effusion. The pleural fluid microbiologic studies are negative. 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 When I went to see the patient, the chest tube appeared to have dislodged from the drainage system. This was reconnected, patient was put to suction for minimal amount of time. Repeat chest x-ray revealed persistent pneumothorax but no worsening from before. After that the chest tube was removed. Medications: Reviewed: Yes Vitals/I&O/Wt Last Vital Signs Temp 97.8 F 10/20/20 08:00 Pulse 120 H 10/20/20 12:00 Resp 16 10/20/20 10:51 BP 112/60 10/20/20 12:00 Pulse Ox 92 10/20/20 12:00 10/19/20 10/20/20 10/20/20 22:59 06:59 14:59 Intake Total 250 / 250 250 / 500 1500 / 1500 Output Total 975 / 1375 450 / 1825 Balance -725 / -1125 -200 / -1325 1500 / 1500 Weight last 48 hrs Weight 143 lb 4.8 oz Weight 130 lb Physical Exam Narrative: EXAM NARRATIVE: General: Patient is awake alert and oriented, in no distress Neck: No JVD Respiratory: Auscultation: Reduced breath sound on the left, no crackles wheezing or rhonchi Cardiovascular: Regular rate and rhythm, S1-S2 present, no murmur, no peripheral edema. Abdomen: Soft, nontender, nondistended, positive bowel sound Musculoskeletal: Pain with mobility of the left lower extremity Skin: No rash, no evidence of erythema nodosum or multiforme. Neuro: Mental status is normal, no gross cranial nerve deficit, normal motor and coordination. Urinary Catheter Management^: Monte[place]: Cath Placed During This Visit: no Reason for Continuing Indwelling Catheter: Accurate Measurement of Urinary Output in Critically Ill Patients Data : 10/20/20 03:19 10/20/20 03:19 Micro: Microbiology 10/19/20 06:58 Gram Stain - Final Pleural Fluid Body Fluid Culture - Preliminary 10/18/20 21:30 Urine Culture - Preliminary Urine Catheterized Attestation for Other Data: I personally reviewed and interpreted the following: Other data: I have reviewed the patient's laboratory, microbiologic and radiologic data. A&P Assessment and plan (1) Pneumothorax: This is a 75-year-old gentleman who presented to the hospital after susta ining a fall which caused him to have mildly displaced left intertrochanteric hip fracture. The patient was found to have a large left-sided pneumothorax with mild shift of the mediastinum to the right. However, the patient is hemodynamically stable and not hypoxic. Tension pneumothorax is a clinical diagnosis and cannot be diagnosed radiologically. There is no evidence of tension in this patient's presentation. 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 I have removed his chest tube. I will follow up with repeat chest x-ray in 2 hours. The patient is hemodynamically stable. No matter what intervention is performed, there will not be a complete apposition of the lung with the chest wall without a decortication. The patient at baseline does not have any significant respiratory complaints. And I would not recommend a decortication. The pleural fluid cytology is pending. I will continue to follow this. The patient should follow up with me in a couple of weeks as outpatient. Status: Acute Attestations Medical Necessity Statement*: Will defer to the primary team Coding Level of Care Code Acute Electron Microscopist for Jennifer Watson Diagnoses Pneumothorax J93.9
--- NOTE | 2020-10-20 14:00 | XRR_ITS ---
PROCEDURE INFORMATION: Exam: XR Chest Exam date and time: 10/20/2020 2:00 PM Age: 75 years old Clinical indication: Device placement; Chest tube; Prior surgery TECHNIQUE: Imaging protocol: XR of the chest. Views: 1 view. COMPARISON: Most recent CR (CHEST, ) 10/20/2020 6:56 AM FINDINGS: Lungs and pleural spaces: No change in appearance of large left pneumothorax with mostly collapsed left lung. Unchanged position of pleural catheter at the lateral mid thorax. Unchanged; No focal consolidation on the right. No visible pleural effusion. Heart/Mediastinum: The heart and mediastinal structures are again shifted rightward. Bones/joints: No acute bony abnormality. XR/XR chest 1V portable [id number] IMPRESSION: No significant interval change. Large left pneumothorax with evidence of tension. The position of the left pleural drain cannot be specifically determined on this single view.
[2020-10-20] MEDS: morphine 4 mg/mL SDV 1 mL 2 MG IVP (14:07)
--- NOTE | 2020-10-20 16:03 | XRR_ITS ---
PROCEDURE INFORMATION: Exam: XR Chest Exam date and time: 10/20/2020 4:03 PM Age: 75 years old Clinical indication: Device placement; Other: Chest tube removal TECHNIQUE: Imaging protocol: XR of the chest. Views: 1 view. COMPARISON: Multiple priors, most recent CR (CHEST, ) 10/20/2020 2:01 PM FINDINGS: Lungs and pleura: Left pleural catheter has been removed. No appreciable change in large left pneumothorax with partially collapsed left lung. Surgical clips again noted to the left of the aortic arch. There are again prominent interstitial markings on the right with no focal consolidation. No significant pleural effusion. Heart/Mediastinum: There is again left to right cardiomediastinal shift in the setting of pneumothorax. The heart is normal in size. Bones/joints: No acute bony abnormality. XR/XR chest 1V portable [id number] IMPRESSION: Interval removal of left pleural catheter with no appreciable change in large left pneumothorax .
--- NOTE | 2020-10-20 18:21 | P.PN_ITS ---
Subjective Subjective: Interval history: 10/19/20 Patient was seen prior to OR Chest tube in place Draining Air leak D/w Dr. Arevalo, & anesthesia 10/20/20 Chest tube removed Transfer order to [facility] placed Low grade fever Medications: Reviewed: Yes Vitals/I&O/Wt Last Vital Signs Temp 99.0 F 10/20/20 16:00 Pulse 105 H 10/20/20 14:00 Resp 20 H 10/20/20 14:00 BP 133/60 10/20/20 18:00 Pulse Ox 95 10/20/20 18:00 10/20/20 10/20/20 10/20/20 06:59 14:59 22:59 Intake Total 250 / 500 1550 / 1550 250 / 1800 Output Total 450 / 1825 550 / 550 Balance -200 / -1325 1550 / 1550 -300 / 1250 Weight last 48 hrs Weight 65 kg Weight 58.967 kg Physical Exam Narrative: EXAM NARRATIVE: General : Alert, awake, NAD HEENT: Grossly unremarkable Chest: Non-labored respiration - R. Sided Chest tube removed. CVS; NSR ABD: Non-distended Ext: Left Hip Fx Urinary Catheter Management^: Monteiro: Cath Placed During This Visit: no Reason for Continuing Indwelling Catheter: Accurate Measurement of Urinary Output in Critically Ill Patients Data : 10/20/20 03:19 10/20/20 03:19 Micro: Microbiology 10/19/20 06:58 Gram Stain - Final Pleural Fluid Body Fluid Culture - Preliminary 10/18/20 21:30 Urine Culture - Preliminary Urine Catheterized A&P Assessment and plan (1) Pneumothorax: Pulmonary on board s/p R.sided chest tube - Removed today Chest x-ray in am D.w Pulmonary - plan for augmentin 875mg po BID x 1 week Repeat labs in am Status: Acute (2) Closed intertrochanteric fracture of left hip: S.p ORIF pod 1 Pain control Management per ortho Status: Acute Qualifiers: Encounter type: initial encounter Fracture alignment: displaced Qualified Code(s): S72.142A - Displaced intertrochanteric fracture of left femur, initial encounter for closed fracture Attestations Medical Necessity Statement*: Will need to continue hospitalization for post op managment. Time Spent in Patient Care: Greater than 35 minutes (>than 50% of time spent in counselling and/or direct pt care on unit) . Coding Level of Care Code Acute Inpatient Services Director for [facility] Diagnoses Pneumothorax J93.9 Closed intertrochanteric fracture of left hip S72.142A Encounter type: initial encounter Fracture alignment: displaced
--- NOTE | 2020-10-20 20:01 | PC.NURSE ---
TRANSFER Pt received from ICU via wheelchair at 1900. Alert and oriented without c/o
[2020-10-20] MEDS: acetaminophen 500 mg Tablet 1000 MG PO (21:04)
[2020-10-20] MEDS: dextrose 5%-sod chloride 0.45% 1,000 ML 30 ML IV (23:03)
[2020-10-21] VITALS (8 sets, daily range): BP systolic 92–129; BP diastolic 50–80; PULSE 70–113; RESP 13–18; TEMP 36.8–37.8; O2SAT 92–96
--- NOTE | 2020-10-21 05:40 | PC.NURSE ---
SHIFT SUMMARY Pt recieved from ICU at begining of shift. Has rested w/o complaints of pain. Refused scheduled tylenol this morning stating that he did not need it. Dressing on left hip is dry and intact. Neurovascular checks to left leg WNL. IV fluids infusing at 30 mL/hr. SCD two bilateral on lower extremities
[2020-10-21 05:50] LABS: Basophils % 0.4 %; Eosinophils # 0.1 10^3/uL (0.0-0.8); Eosinophils % 1.4 %; Hematocrit 28.5 % (42.0-52.0); Hemoglobin 9.1 g/dL (11.7-16.6); Lymphocytes % 12.4 %; Mean Corpuscular HGB Conc 31.9 g/dL (30.0-36.0); Mean Corpuscular Hemoglobin 30.7 pg (28.0-34.0); Mean Corpuscular Volume 96.3 fL (80-94); Mean Platelet Volume 11.1 fL (7.4-10.4); Monocytes % 12.9 %; Neutrophils # 5.87 10^3/uL (1.8-7.7); Neutrophils % 72.4 %; Nucleated Red Blood Cells % 0 %; Platelet Count 124 10^3/cmm (130-400); Red Blood Count 2.96 10^6/uL (4.1-5.3); Red Cell Distribution Width 14.1 % (12.1-15.1); White Blood Count 8.1 10^3/uL (4.0-10.0)
[2020-10-21 06:13] LABS: Alanine Aminotransferase 12 U/L (0-41); Albumin Level 2.7 g/dL (3.5-5.2); Alkaline Phosphatase 47 IU/L (40-130); Anion Gap 9.4 (5-19); Aspartate Amino Transferase 20 U/L (0-40); Blood Urea Nitrogen 16 mg/dL (8-23); Calcium 8.3 mg/dL (8.5-10.5); Carbon Dioxide 29 mmol/L (22-29); Chloride 102 mmol/L (98-107); Globulin 2.8 g/dL (1.3-4.6); Glucose 112 mg/dL (65-115); Osmolality Calculated 284 mOsm/kg (285-295); Potassium 4.4 mmol/L (3.5-5.1); Sodium 136 mmol/L (136-145); Total Bilirubin 0.8 mg/dL (0.15-1.2); Total Protein 5.5 g/dL (6.6-8.7)
--- NOTE | 2020-10-21 07:00 | XRR_ITS ---
PROCEDURE INFORMATION: Exam: XR Chest Exam date and time: 10/21/2020 7:00 AM Age: 75 years old Clinical indication: Condition or disease; Lung condition and disease; Respiratory failure TECHNIQUE: Imaging protocol: XR of the chest. Views: 1 view. COMPARISON: CR (CHEST, ) 10/20/2020 5:23 PM FINDINGS: Lungs: Unchanged large left-sided pneumothorax, with mild shifting of mediastinal structures towards the right. An atelectatic left lung is re-identified. Mildly increased lung markings in the right lung, likely secondary to low lung volume. Right basilar atelectasis noted. Surgical clips project over the left upper chest. Pleural spaces: See Lungs finding. Heart/Mediastinum: Stable cardiomediastinal silhouette. Bones/joints: No acute osseous injury. There is a small amount of subcutaneous emphysema over the left lateral chest wall.. XR/XR chest 1V portable [id number] IMPRESSION: Persistent large left-sided pneumothorax with mild shifting of the mediastinal structures towards the right.
[2020-10-21] MEDS: oxyCODONE 5 mg IR Tab/Cap PO (08:57)
[2020-10-21] MEDS: amoxicillin-clav 875-125 mg Tablet 1 TAB PO ×2 (08:58→18:05)
[2020-10-21] MEDS: sennosides-docusate Tablet 1 TAB PO (08:59)
[2020-10-21] MEDS: aspirin 325 mg EC Tablet PO (08:59)
--- NOTE | 2020-10-21 10:51 | PC.SOCIAL ---
IMM update IMM updated with patient. Verbalized under standing. Placed in chart. Initialed, dated and signed.
--- NOTE | 2020-10-21 11:54 | PC.NUTR ---
Nutrition assessment completed due to BMI < 23 in age > 65 years. Recommend obtain current weight as multiple values present in EMR--question accuracy. Notified nurse of recommendation. Also added Ensure Plus BID in pt's preferred flavors to provide additional kcal. See RD assessment for further details.
--- NOTE | 2020-10-21 14:42 | PM.PN ---
Subjective Subjective: Interval history: The patient is seen and evaluated on the floor today. He is sitting up in a chair. He was in the intensive care unit yesterday monitoring status after chest tube removal. Patient wishes to be discharged to home, however, he understands the reasons for possible assisted referral. Medications: Reviewed: Yes Vitals/I&O/Wt Last Vital Signs Temp 98.2 F 10/21/20 11:22 Pulse 70 10/21/20 11:22 Resp 18 10/21/20 11:22 BP 129/80 10/21/20 11:22 Pulse Ox 94 10/21/20 11:22 10/20/20 10/21/20 10/21/20 22:59 06:59 14:59 Intake Total 250 / 1800 360 / 360 Output Total 550 / 550 450 / 1000 Balance -300 / 1250 -450 / 800 360 / 360 Weight last 48 hrs Weight 152 lb 8 oz Weight 143 lb 4.8 oz Physical Exam Const: COMMON NORMALS: no acute distress, average body habitus, patient oriented x3 and alert GENERAL APPEARANCE: cooperative and comfortable ORIENTATION/CONSCIOUSNESS: Yes awake HENMT: COMMON NORMALS: normocephalic and atraumatic HEAD & SCALP: normocephalic and atraumatic Eye: GENERAL EYE: appearance normal, both eyes and all related structures Chest: CHEST: Yes abnormal inspection of the chest (Left chest tube in place) Resp: EFFORT & INSPECTION: Yes able to speak in complete sentences Extremity: LEFT LOWER EXTREMITY: Yes hip joint (Dressing is dry and intact with no evidence of bleeding) Left hip: Yes inspection (No swelling in the thigh), Yes palpation (Minimal tenderness to palpation.), Yes ROM (Not evaluated as the patient is up in a chair) and Yes neurovascular exam (Intact distal to the fracture and surgical site) Neuro: COMMON NORMALS: patient oriented x3 SENSORIUM/ORIENTATION: Yes alert Psych: COMMON NORMALS: mental status grossly normal APPEARANCE: Yes grossly normal ATTITUDE: Yes calm and Yes engaged ATTENTION/CONCENTRATION: Yes attention grossly intact Skin: COMMON NORMALS: no rashes or lesions noted GENERAL SKIN EXAM: no rashes or lesions noted Urinary Catheter Management^: Monteiro: Cath Placed During This Visit: no Reason for Continuing Indwelling Catheter: Required Immobilization for Trauma or Surgery or Anesthesia Data : 10/21/20 04:46 10/21/20 04:46 Micro: Microbiology 10/19/20 06:58 Gram Stain - Final Pleural Fluid Body Fluid Culture - Preliminary 10/18/20 21:30 Urine Culture - Final Urine Catheterized A&P Assessment and plan (1) Closed intertrochanteric fracture of left hip: This 75-year-old gentleman was admitted through the emergency department with diagnosis of a left intertrochanteric hip fracture subsequent to a fall. The patient denied loss of consciousness or syncope. He has a complicating medical history which involves a left numb pneumothorax and atelectasis. This is chronic and recurring. The patient's preoperative chest tube has been removed and he is sitting up in a chair comfortably. He is working with physical therapy, but physical therapy does feel that he would benefit from assisted. The patient would like to go home, but he understands this recommendation. I am in agreement with discharge when medically stable to assisted. He is to follow-up with me in about 2 to 3 weeks time. He may be weightbearing as tolerated. Status: Acute Qualifiers: Encounter type: initial encounter Fracture alignment: displaced Qualified Code(s): S72.142A - Displaced intertrochanteric fracture of left femur, initial encounter for closed fracture Attestations Medical Necessity Statement*: Per hospitalist team and pulmonary Coding Level of Care Code Acute Project Manager Retail for [facility] Diagnoses Closed intertrochanteric fracture of left hip S72.142A Encounter type: initial encounter Fracture alignment: displaced
--- NOTE | 2020-10-21 16:58 | P.PN_ITS ---
Subjective Subjective: Interval history: Hospital course, labs appreciated. On examination sitting in bed on phone. Denies any nausea, vomiting, headache. Has remained hemodynamically stable. Medications: Reviewed: Yes Vitals/I&O/Wt Last Vital Signs Temp 98.8 F 10/21/20 15:15 Pulse 104 H 10/21/20 15:15 Resp 18 10/21/20 15:15 BP 100/52 10/21/20 15:15 Pulse Ox 96 10/21/20 15:15 10/21/20 10/21/20 10/21/20 06:59 14:59 22:59 Intake Total 360 / 360 50 / 410 Output Total 450 / 1000 Balance -450 / 800 360 / 360 50 / 410 Weight last 48 hrs Weight 69.173 kg Weight 65 kg Physical Exam Narrative: EXAM NARRATIVE: General : Alert, awake, NAD HEENT: Grossly unremarkable Chest: Non-labored respiration - R. Sided Chest tube removed. CVS; NSR ABD: Non-distended Ext: Left Hip Fx Urinary Catheter Management^: Monteiro: Cath Placed During This Visit: no Reason for Continuing Indwelling Catheter: Required Immobilization for Trauma or Surgery or Anesthesia Data : 10/21/20 04:46 10/21/20 04:46 Micro: Microbiology 10/19/20 06:58 Gram Stain - Final Pleural Fluid Body Fluid Culture - Preliminary 10/18/20 21:30 Urine Culture - Final Urine Catheterized A&P Assessment and plan (1) Pneumothorax: Status: Acute (2) Closed intertrochanteric fracture of left hip: Status: Acute Qualifiers: Encounter type: initial encounter Fracture alignment: displaced Qualified Code(s): S72.142A - Displaced intertrochanteric fracture of left femur, initial encounter for closed fracture Additional A&P Information Closed intertrochanteric fracture of left hip: Postoperative day 2. Continue with pain control, physical therapy, anticoagulation as per surgical team. Pneumothorax: Appreciate pulmonology recommendations. Chest tube removed yesterday. Patient continues to do well on room air. We will continue to monitor. Plan for Augmentin 875 mg p.o. twice daily for next 7 days. DC Monteiro. Stop IV fluids. Check iron panel, TSH, folic acid, vitamin B12 levels. Full code. Anticoagulation as per surgical team. Regular diet. Discharge planning: Given deconditioning from the surgery and further requirement of physical therapy patient requires discharge to SNF. Case management has been alerted. Attestations Medical Necessity Statement*: Requires further hospitalization for postoperative management of intertrochanteric fracture of left hip, pneumothorax post chest tube removal while safe discharge planning is sought. Time Spent in Patient Care: Greater than 35 minutes (>than 50% of time spent in counselling and/or direct pt care on unit) . Coding Level of Care Code Acute Harness Rigger for [facility] Fwd Diagnoses Pneumothorax J93.9 Closed intertrochanteric fracture of left hip S72.142A Encounter type: initial encounter Fracture alignment: displaced
[2020-10-21 17:37] LABS: Total Iron Binding Capacity 190 mcg/dl; Unsaturated Iron Binding 180 ug/dL (112-347)
[2020-10-21 17:44] LABS: Thyroid Stimulating Hormone 2.88 uIU/mL (0.27-4.20)
[2020-10-21 20:16] LABS: Iron 10 ug/dL (59-158); Percent Saturation 5.2 % (20-50)
[2020-10-22] VITALS (7 sets, daily range): BP systolic 116–127; BP diastolic 65–73; PULSE 90–104; RESP 13–18; TEMP 36.4–37.6; O2SAT 94–97
[2020-10-22 06:56] LABS: Basophils % 0.4 %; Eosinophils # 0.1 10^3/uL (0.0-0.8); Eosinophils % 1.3 %; Hematocrit 27.2 % (42.0-52.0); Hemoglobin 8.8 g/dL (11.7-16.6); Lymphocytes # 0.9 10^3/uL (0.8-4.8); Lymphocytes % 11.7 %; Mean Corpuscular HGB Conc 32.4 g/dL (30.0-36.0); Mean Corpuscular Hemoglobin 30.3 pg (28.0-34.0); Mean Corpuscular Volume 93.8 fL (80-94); Mean Platelet Volume 10.6 fL (7.4-10.4); Monocytes # 0.8 10^3/uL (0.2-0.9); Neutrophils # 5.67 10^3/uL (1.8-7.7); Neutrophils % 75.2 %; Nucleated Red Blood Cells % 0 %; Platelet Count 156 10^3/cmm (130-400); Red Cell Distribution Width 13.8 % (12.1-15.1); White Blood Count 7.5 10^3/uL (4.0-10.0)
[2020-10-22 07:22] LABS: Procalcitonin 0.08 ng/mL (0-0.5)
[2020-10-22 07:35] LABS: Alanine Aminotransferase 13 U/L (0-41); Albumin Level 2.8 g/dL (3.5-5.2); Alkaline Phosphatase 45 IU/L (40-130); Aspartate Amino Transferase 19 U/L (0-40); Blood Urea Nitrogen 15 mg/dL (8-23); Calcium 7.9 mg/dL (8.5-10.5); Carbon Dioxide 29 mmol/L (22-29); Chloride 100 mmol/L (98-107); Globulin 2.7 g/dL (1.3-4.6); Glucose 95 mg/dL (65-115); Osmolality Calculated 281 mOsm/kg (285-295); Sodium 135 mmol/L (136-145); Total Bilirubin 0.7 mg/dL (0.15-1.2); Total Protein 5.5 g/dL (6.6-8.7)
[2020-10-22] MEDS: sennosides-docusate Tablet 1 TAB PO (10:36)
[2020-10-22] MEDS: aspirin 325 mg EC Tablet PO (10:36)
[2020-10-22] MEDS: amoxicillin-clav 875-125 mg Tablet 1 TAB PO ×2 (10:36→17:45)
[2020-10-22] MEDS: acetaminophen 500 mg Tablet 1000 MG PO (10:37)
[2020-10-22] MEDS: magnesium hydroxide 30 mL UDC PO (15:14)
[2020-10-22] MEDS: oxyCODONE 5 mg IR Tab/Cap PO (15:14)
--- NOTE | 2020-10-22 16:14 | P.PN_ITS ---
Subjective Subjective: Interval history: No acute events overnight. Patient had T-max of 100 Fahrenheit last night. Denies any nausea vomiting, headache. Continues to work with physical therapy but weak. Continues to remain on room air. Medications: Reviewed: Yes Vitals/I&O/Wt Last Vital Signs Temp 97.6 F 10/22/20 15:55 Pulse 90 10/22/20 15:55 Resp 18 10/22/20 15:55 BP 117/65 10/22/20 15:55 Pulse Ox 97 10/22/20 15:55 10/22/20 10/22/20 10/22/20 06:59 14:59 22:59 Intake Total 265 / 265 Output Total 650 / 1550 450 / 450 375 / 825 Balance -650 / 340 -185 / -185 -375 / -560 Weight last 48 hrs Weight 67.857 kg Weight 69.173 kg Physical Exam Narrative: EXAM NARRATIVE: General : Alert, awake, NAD HEENT: Grossly unremarkable Chest: Non-labored respiration - R. Sided Chest tube removed. CVS; NSR ABD: Non-distended Ext: Left Hip Fx Urinary Catheter Management^: Monteiro: Cath Placed During This Visit: yes, but has since been removed by the nurse Reason for Continuing Indwelling Catheter: Decision to DC Catheter Date Urinary Catheter Removed: 10/21/20 Time Urinary Catheter Discontinued: 18:30 Data : 10/22/20 05:42 10/22/20 05:42 Micro: Microbiology 10/19/20 06:58 Gram Stain - Final Pleural Fluid Body Fluid Culture - Final A&P Assessment and plan (1) Pneumothorax: Pulmonary on board s/p R.sided chest tube - Removed today Chest x-ray in am D.w Pulmonary - plan for augmentin 875mg po BID x 1 week Repeat labs in am Status: Acute (2) Closed intertrochanteric fracture of left hip: S.p ORIF pod 1 Pain control Management per ortho Status: Acute Qualifiers: Encounter type: initial encounter Fracture alignment: displaced Qualified Code(s): S72.142A - Displaced intertrochanteric fracture of left femur, initial encounter for closed fracture Additional A&P Information Closed intertrochanteric fracture of left hip: Postoperative day 3. Continue with pain control, physical therapy, anticoagulation as per surgical team. Pneumothorax: Appreciate pulmonology recommendations. Chest tube removed yesterday. Patient continues to do well on room air. We will continue to monitor. Plan for Augmentin 875 mg p.o. twice daily for next 7 days. Febrile overnight. Most likely secondary to atelectasis. Check procalcitonin. No leukocytosis. No diarrhea, dysuria, cough. Continues to remain on room air. Check chest x-ray. Continue with incentive spirometry. Full code. Anticoagulation as per surgical team. Regular diet. Discharge planning: Given deconditioning from the surgery and further requirement of physical therapy patient requires discharge to SNF. Case management has been alerted. Attestations Medical Necessity Statement*: Requires further hospitalization for postoperative management of closed intertrochanteric fracture of left hip while safe discharge planning is sought. Time Spent in Patient Care: Greater than 35 minutes (>than 50% of time spent in counselling and/or direct pt care on unit) . Coding Level of Care Code Acute Clean Out Driller for [facility] Diagnoses Pneumothorax J93.9 Closed intertrochanteric fracture of left hip S72.142A Encounter type: initial encounter Fracture alignment: displaced
[2020-10-23 03:59] VITALS: BP 123/70; PULSE 97; RESP 18; TEMP 37.1; O2SAT 96
[2020-10-23] MEDS: sennosides-docusate Tablet 1 TAB PO (08:56)
[2020-10-23] MEDS: amoxicillin-clav 875-125 mg Tablet 1 TAB PO (08:56)
[2020-10-23 08:57] VITALS: RESP 14; O2SAT 96
[2020-10-23] MEDS: aspirin 325 mg EC Tablet PO (08:57)
[2020-10-23] MEDS: oxyCODONE 5 mg IR Tab/Cap PO (08:57)
--- NOTE | 2020-10-23 11:37 | PM.DCS ---
Discharge Providers Date of Admission: 10/18/20 21:14 Date of Discharge: October 23, 2020 Attending Provider at Admission: Pj Bahena MD Attending Provider at Discharge: Tristan Granger MD Consults: Ortho: Dr. Arevalo Pulm: Dr. Harkins Diagnoses at Discharge Discharge Diagnosis (1) Pneumothorax: Status: Acute (2) Closed intertrochanteric fracture of left hip: Status: Acute Qualifiers: Encounter type: initial encounter Fracture alignment: displaced Qualified Code(s): S72.142A - Displaced intertrochanteric fracture of left femur, initial encounter for closed fracture Reason for Visit Reason for Visit: LEG PAIN POST FALL Hospital Course Hospital Course Ian Matt is a 75 year old male who presented to the hospital after sustaining left hip fracture while moving his furniture from the truck. 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 After he presented to the hospital, a chest x-ray was obtained and the patient was seen to have a large left-sided pneumothorax with some evidence of mediastinal shift to the right. However, the patient was not very symptomatic. His blood pressure was stable, he was not tachycardic and oxygen saturation was normal. The patient underwent a CT scan of the chest as well. There is a large left-sided pneumothorax with near total collapse of the left lung. 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 This diagnosis was made from the pleural biopsy. Pulmonology and orthopedics was consulted and. Patient underwent ORIF on October 19. He tolerated the procedure well. He also underwent chest tube placement for large tension pneumothorax on the left side. On further interview with the patient he stated that he had inguinal surgery done in 2019 and at that time also he underwent chest tube placement however his lung never completely expanded. 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 His hospital stay was otherwise unremarkable. Because of physical deconditioning and requiring further rehab for left hip fracture patient is being discharged in hemodynamic stable condition to SNF. He is to follow-up with Dr. Arevalo on set appointment. Physical Exam Narrative: EXAM NARRATIVE: General : Alert, awake, NAD HEENT: Grossly unremarkable Chest: Non-labored respiration - R. Sided Chest tube removed. CVS; NSR ABD: Non-distended Ext: Left Hip Fx Urinary Catheter Management^: Monteiro: Cath Placed During This Visit: yes, but has since been removed by the nurse Reason for Continuing Indwelling Catheter: Decision to DC Catheter Date Urinary Catheter Removed: 10/21/20 Time Urinary Catheter Discontinued: 18:30 Discharge Data Data Completed and Pending: Completed Studies During Hospitalization Category Date Time Status CT chest wo con 7 1250 Stat Cat Scan 10/19/20 00:03 Completed CXRP [XR chest 1V portable 98310] R outine Exams 10/19/20 21:30 Completed CXRP [XR chest 1V portable 75165] S tat Exams 10/19/20 06:57 Completed XR chest 1V devin ble 36163 Routine Exams 10/20/20 07:00 Completed XR chest 1V devin ble 11580 Routine Exams 10/20/20 16:03 Completed XR chest 1V devin ble 93037 Routine Exams 10/21/20 07:00 Completed XR chest 1V devin ble 86009 Stat Exams 10/20/20 14:00 Completed XR chest 1V devin ble 93658 Urgent Exams 10/18/20 20:51 Completed XR hip LT 2-3V wo /w pel* 55404 Rout ine Exams 10/19/20 14:36 Completed XR hip LT 2-3V wo /w pel* 89590 Stat Exams 10/18/20 20:03 Completed CV echo complete* 13264 Routine Ultrasound 10/19/20 22:31 Completed Pending at discharge Category Date Time Status Mycobacteria, Cul ture w/Fluor Routi ne Lab 10/19/20 06:58 Received Cytology [PTH] Ro utine Pth 10/19/20 07:09 Received Addt'l Data from Hospital Stay: Laboratory Results WBC 7.5 10^3/uL (4.0- 10.0) 10/22/20 05:42 RBC 2.90 10^6/uL (4.1 -5.3) L 10/22/20 05:42 Hgb 8.8 g/dL (11.7-16 .6) L 10/22/20 05:42 Hct 27.2 % (42.0-52.0 ) L 10/22/20 05:42 MCV 93.8 fL (80-94) 10/22/20 05:42 MCH 30.3 pg (28.0-34. 0) 10/22/20 05:42 MCHC 32.4 g/dL (30.0-3 6.0) 10/22/20 05:42 RDW 13.8 % (12.1-15.1 ) 10/22/20 05:42 Plt Count 156 10^3/cmm (130 -400) 10/22/20 05:42 MPV 10.6 fL (7.4-10.4 ) H 10/22/20 05:42 Neut % (Auto) 75.2 % 10/22/20 05:42 Lymph % (Auto) 11.7 % 10/22/20 05:42 Eagle % (Auto) 11.0 % 10/22/20 05:42 Eos % (Auto) 1.3 % 10/22/20 05:42 Baso % (Auto) 0.4 % 10/22/20 05:42 Neut # (Auto) 5.67 10^3/uL (1.8 -7.7) 10/22/20 05:42 Lymph # (Auto) 0.9 10^3/uL (0.8- 4.8) 10/22/20 05:42 Eagle # (Auto) 0.8 10^3/uL (0.2- 0.9) 10/22/20 05:42 Eos # (Auto) 0.1 10^3/uL (0.0- 0.8) 10/22/20 05:42 Baso # (Auto) 0.0 10^3/uL (0.0- 0.1) 10/22/20 05:42 Nucleated RBC % (a uto) 0 % 10/22/20 05:42 Total Counted Not Reportable 10/19/20 06:58 Nucleated RBCs # 0.0 /100WBC 10/22/20 05:42 Differential Comme nt Yes 10/19/20 06:58 PT 13.70 SECONDS (12 .1-14.9) 10/18/20 21:04 INR 1.02 (0.8-1.2) 10/18/20 21:04 APTT 21.5 SECONDS (23. 9-36.7) L 10/18/20 21:04 Sodium 135 mmol/L (136-1 45) L 10/22/20 05:42 Potassium 4.0 mmol/L (3.5-5 .1) 10/22/20 05:42 Chloride 100 mmol/L (98-10 7) 10/22/20 05:42 Carbon Dioxide 29 mmol/L (22-29) 10/22/20 05:42 Anion Gap 10.0 (5-19) 10/22/20 05:42 BUN 15 mg/dL (8-23) 10/22/20 05:42 Creatinine 0.6 mg/dL (0.7-1. 2) L 10/22/20 05:42 GFR Calculation Not Reportable 10/22/20 05:42 Glucose 95 mg/dL (65-115) 10/22/20 05:42 Calculated Osmolal ity 281 mOsm/kg (285- 295) L 10/22/20 05:42 Calcium 7.9 mg/dL (8.5-10 .5) L 10/22/20 05:42 Magnesium 1.8 mg/dL (1.7-2. 3) 10/18/20 21:04 Iron 10 ug/dL (59-158) L 10/21/20 04:46 TIBC 190 mcg/dl 10/21/20 04:46 % Saturation 5.2 % (20-50) L 10/21/20 04:46 Unsat Iron Binding 180 ug/dL (112-34 7) 10/21/20 04:46 Total Bilirubin 0.7 mg/dL (0.15-1 .2) 10/22/20 05:42 AST 19 U/L (0-40) 10/22/20 05:42 ALT 13 U/L (0-41) 10/22/20 05:42 Alkaline Phosphata se 45 IU/L (40-130) 10/22/20 05:42 NT-Pro-B Natriuret Pep 208 pg/mL (0-125) H 10/18/20 21:04 Total Protein 5.5 g/dL (6.6-8.7 ) L 10/22/20 05:42 Albumin 2.8 g/dL (3.5-5.2 ) L 10/22/20 05:42 Globulin 2.7 g/dL (1.3-4.6 ) 10/22/20 05:42 Procalcitonin 0.08 ng/mL (0-0.5 ) 10/22/20 05:42 TSH 2.88 uIU/mL (0.27 -4.20) 10/21/20 04:46 Urine Color Yellow (Yellow) 10/18/20 21:30 Urine Appearance Clear (CLEAR) 10/18/20 21:30 Urine pH 5 (5-7) 10/18/20 21:30 Ur Specific Gravit y 1.015 (1.005-1.0 30) 10/18/20 21:30 Urine Protein Neg (Negative) 10/18/20 21:30 Urine Glucose (UA) Norm (Normal) 10/18/20 21:30 Urine Ketones 1+ (Negative) H 10/18/20 21: Urine Blood 2+ (Negative) H 10/18/20 21:30 Urine Nitrate Negative (Negati ve) 10/18/20 21:30 Urine Bilirubin Neg (Negative) 10/18/20 21:30 Urine Urobilinogen Norm mg/dL (Negat claudia) 10/18/20 21:30 Ur Leukocyte Starr ase Negative (Negati ve) 10/18/20 21:30 Urine RBC 10-15 /hpf (0-2) H 10/18/20 21:30 Urine WBC 0-4 /hpf (0-5) H 10/18/20 21:30 Ur Squamous Epith Cells 0-4 /hpf (0-5) H 10/18/20 21:30 Amorphous Sediment Not Reportable 10/18/20 21:30 Urine Bacteria Trace /hpf (NONE) 10/18/20 21:30 Urine Sperm 1+ /hpf 10/18/20 21:30 Fluid Color Yellow 10/19/20 06:58 Fluid Appearance Turbid 10/19/20 06:58 Fluid WBC 19448 /uL 10/19/20 06:58 Fluid RBC 276.000 10^3/uL 10/19/20 06:58 Fld Polynuclear WB Cs # 40.988 10/19/20 06:58 Fld Polynuclear WB Cs % 91.800 % 10/19/20 06:58 Fl Mononucl WBCs # (Auto) 3.662 10/19/20 06:58 Fl Mononuclear % A uto 8.200 % 10/19/20 06:58 Pleural Color Yellow (Pale Yel low) H 10/19/20 06:58 Pleural Appearance Turbid (CLEAR) 10/19/20 06:58 Pleural pH 9.00 (6.5-7.5) H 10/19/20 06:58 Pleural WBC 79974.000 /uL (0- 1000) H 10/19/20 06:58 Pleural RBC 276.000 10^3/uL 10/19/20 06:58 Pleural Other Cell s Not Reportable 10/19/20 06:58 Pleural Polynuclea r % 92 % 10/19/20 06:58 Pleural Mononuclea r % 8 % 10/19/20 06:58 Pleural Total Prot ein 8.2 g/dL 10/19/20 06:58 Pleural LDH 1534 U/L 10/19/20 06:58 Pleural Glucose 6.0 mg/dL 10/19/20 06:58 Pleural Triglyceri ester 150 mg/dL 10/19/20 06:58 Path Cons w/Slide Yes 10/19/20 06:[address] 10/19/20 00:03 IMPRESSION: 1. Large tension hydropneumothorax with shift of the heart and mediastinum to the right and depressed left hemidiaphragm. 2. Moderate posterior left pleural fluid collection with essentially 100% left pneumothorax. 3. Small residual aerated left lung. Radiation Dose CTDIVOL = (mGy): DLP = 533.08 (mGy-cm) ADDENDUM: 10/19/20 0222 THIS REPORT CONTAINS FINDINGS THAT MAY BE CRITICAL TO PATIENT CARE. The findings were verbally communicated via telephone conference with PJ BAHENA at 2:20 AM CDT on 10/19/2020. The findings were acknowledged and understood. Radiation Dose CTDIVOL = (mGy): DLP = 533.08 (mGy-cm) Hip/Pelvis X-Ray 10/19/20 14:36 IMPRESSION: Images obtained for intraoperative purposes. Chest X-Ray 10/21/20 07:00 IMPRESSION: Persistent large left-sided pneumothorax with mild shifting of the mediastinal structures towards the right. Vitals: Last Vital Signs Temp 98.7 F 10/23/20 03:59 Pulse 97 10/23/20 03:59 Resp 14 10/23/20 08:57 BP 123/70 10/23/20 03:59 Pulse Ox 96 10/23/20 08:57 Discharge Plan Discharge Patient Disposition: Xfer SNF Condition: Stable Prescriptions: New aspirin 325 mg Tablet,Delayed Release (Dr/Ec) 325 mg PO DAILY 14 Days Qty: 14 RF: 0 amoxicillin-pot clavulanate 875-125 mg Tablet 1 tab PO BID 7 Days Qty: 14 RF: 0 No Action No Known Home Medications RF: 0 Discharge Orders: Discharge Order (Routine); Ordered 10/23/20 Ordered By: Tristan Granger Referrals: Fay Arevalo MD [Physician] - 2 weeks (2-3 weeks) Virgilio Harkins MD [Physician] - 7-10 days Discharge Activity: Increase activity as tolerated, Use walker/crutches as instructed and As per PT/OT instructions Activity Restrictions/Additional Instructions: May be weightbearing as tolerated left lower extremity. Use walker or crutches as determined necessary by physical therapy. Ice to wound, and dressing changes as needed. Please continue taking amoxicillin for next 7 days to finish a course of antibiotics. Please follow-up with your primary care provider within [address] Arevalo in 2 weeks. Discharge Attestations Time Spent in Discharge Care*: greater than 30 min Specific Discharge Activities: educating patient, discussing with pcp/other providers, discussing with assistant case manager/social workers/dc planners, documenting/other paperwork and evaluating patient/reviewing data Status at Discharge: Cognitive status at discharge: cognitively intact, Behavioral status at discharge: cooperative, Functional status at discharge: uses cane/walker Overall status at discharge: patient is progressing back to baseline Quality Metrics Clinical Quality Measures During this hospital stay, did patient experience: None Coding Level of Care Code Acute [facility] FW DC note Diagnoses Pneumothorax J93.9 Closed intertrochanteric fracture of left hip S72.142A Encounter type: initial encounter Fracture alignment: displaced
[2020-10-23 12:00] VITALS: BP 123/74; PULSE 75; RESP 17; TEMP 37.1; O2SAT 94
--- NOTE | 2020-10-23 13:27 | P.PN_ITS ---
Subjective Subjective: Interval history: Patient continues to do well working with physical therapy. He does have some weakness. He is ready for discharge to intermediate. Medications: Reviewed: Yes Vitals/I&O/Wt Last Vital Signs Temp 98.7 F 10/23/20 03:59 Pulse 97 10/23/20 03:59 Resp 14 10/23/20 08:57 BP 123/70 10/23/20 03:59 Pulse Ox 96 10/23/20 08:57 10/22/20 10/23/20 10/23/20 22:59 06:59 14:59 Intake Total 200 / 200 Output Total 1025 / 1475 250 / 1725 Balance -1025 / -1210 -250 / -1460 200 / 200 Weight last 48 hrs Weight 149 lb 9.6 oz Physical Exam Const: COMMON NORMALS: no acute distress, average body habitus, patient oriented x3 and alert GENERAL APPEARANCE: cooperative and comfortable ORIENTATION/CONSCIOUSNESS: Yes awake HENMT: COMMON NORMALS: normocephalic and atraumatic HEAD & SCALP: normocephalic and atraumatic Eye: GENERAL EYE: appearance normal, both eyes and all related structures Chest: CHEST: Yes abnormal inspection of the chest (Left chest tube in place) Resp: EFFORT & INSPECTION: Yes able to speak in complete sentences Extremity: LEFT LOWER EXTREMITY: Yes hip joint (No erythema or ecchymosis.) Left hip: Yes inspection (No swelling), Yes palpation (Nontender), Yes ROM (Not evaluated) and Yes neurovascular exam (Intact) Neuro: COMMON NORMALS: patient oriented x3 SENSORIUM/ORIENTATION: Yes alert Psych: COMMON NORMALS: mental status grossly normal APPEARANCE: Yes grossly normal ATTITUDE: Yes calm and Yes engaged ATTENTION/CONCENTRATION: Yes attention grossly intact Skin: COMMON NORMALS: no rashes or lesions noted GENERAL SKIN EXAM: no rashes or lesions noted Urinary Catheter Management^: Monteiro: Cath Placed During This Visit: yes, but has since been removed by the nurse Reason for Continuing Indwelling Catheter: Decision to DC Catheter Date Urinary Catheter Removed: 10/21/20 Time Urinary Catheter Discontinued: 18:30 Data : 10/22/20 05:42 10/22/20 05:42 Micro: Microbiology 10/19/20 06:58 Gram Stain - Final Pleural Fluid Body Fluid Culture - Final A&P Assessment and plan (1) Closed intertrochanteric fracture of left hip: This 75-year-old gentleman was admitted through the emergency department with diagnosis of a left intertrochanteric hip fracture subsequent to a fall. The patient denied loss of consciousness or syncope. He has a complicating medical history which involves a left numb pneumothorax and atelectasis. This is chronic and recurring. The patient's preoperative chest tube has been removed and he is sitting up in a chair comfortably. He is working with physic al therapy, but physical therapy does feel that he would benefit from intermediate. The patient would like to go home, but he understands this recommendation. I am in agreement with discharge to intermediate. He has had minimal pain medication needs, and he likely will do fine with Tylenol as his outpatient pain medication. He is to follow-up with me in about 2 to 3 weeks time. He may be weightbearing as tolerated. Status: Acute Qualifiers: Encounter type: initial encounter Fracture alignment: displaced Qualified Code(s): S72.142A - Displaced intertrochanteric fracture of left femur, initial encounter for closed fracture Attestations Medical Necessity Statement*: Per medical service Coding Level of Care Code Acute [facility] Diagnoses Closed intertrochanteric fracture of left hip S72.142A Encounter type: initial encounter Fracture alignment: displaced
--- NOTE | 2020-10-23 13:45 | PC.SOCIAL ---
IMM UPDATE Gave patient IMM update. Provided copy of page 2. Verbalized understanding 10/23/20 @ 0959 Initialed, dated, timed and placed in chart.
--- NOTE | 2020-10-23 15:27 | PC.NURSE ---
PT HAS DONE WELL FOR ME. PT JUST HAS SOME MINIMAL COMPLAINTS OF PAIN. PAIN HAS BEEN TOLERATED WELL WITH TYLENOL. PT WILL DISCHARGE TO [facility] TODAY. PT AWARE OF THIS. DISCHARGE WAS GONE OVER WITH PT AND PT WAS INFORMED THAT HIS PACKET WOULD BE SENT TO THE PRISON ALONG WITH HIS PRESCRIPTIONS. IV WAS REMOVED. PT TOLERATED WELL. CATHETER TIP INTACT. THIS NURSE ASSISTED PT TO GETTING DRESSED. REPORT WAS CALLED TO ASHA MORRIS AT [facility]. ALL QUESTIONS ANSWERED. PT WAS SAFELY WHEELED OUT WITH TRANSPORTATION SERVICE AT 1520.
[2020-10-23 15:33] VITALS: BP 123/74; PULSE 75; RESP 17; TEMP 37.1; O2SAT 94
== END 2020-10-23 15:34 | disposition skilled nursing facility (03) | DRG 481 ==
LOC: ER 19:48 → MEDSURG 21:39 → ICU 10-19 01:46 → MEDSURG 10-20 19:39
PROVIDERS: Hospitalist; Internal Medicine Critical Care Medicine; Specialist; Admitting Provider Internal Medicine; Emergency Provider Emergency Medicine; Visit Provider Student in an Organized Health Care Education/Training Program
PROC: 0QS706Z Reposition Left Upper Femur with Intramedullary Internal Fixation Device, Open Approach (ICD-10-PCS; CPT 27245; principal; 2020-10-19 12:20)
DX: S72.142A Displaced intertrochanteric fracture of left femur, initial encounter for closed fracture (principal); J93.81 Chronic pneumothorax; J98.11 Atelectasis; W18.09XA Striking against other object with subsequent fall, initial encounter; I89.8 Other specified noninfective disorders of lymphatic vessels and lymph nodes
CPT/HCPCS: 36415; 51702; 71045; 71250; 73502; 76000; 80048; 80053; 80500; 81001; 82945; 83540; 83550; 83615; 83735; 83880; 83986; 84145; 84157; 84443; 84478; 85025; 85610; 85730; 87015; 87070; 87075; 87086; 87116; 87205; 87206; 87801; 88112; 88305; 89050; 93005; 93306; 96361; 96374; 96375; 97110; 97116; 97162; 97166; 97530; 97535; 99285; C1713; J0690; J2250; J2270; J2405; J2704; J3010; J3490; J7040; J7799

== ENCOUNTER → 2020-11-11 11:54 | Outpatient (BNVA) | payer OTHER, SELFPAY | PROVIDERS: PCP Family Medicine; Visit Provider Specialist | DX: S72.142A Displaced intertrochanteric fracture of left femur, initial encounter for closed fracture (principal); X58.XXXA Exposure to other specified factors, initial encounter | CPT/HCPCS: 73502 ==

== ENCOUNTER → 2020-12-02 11:31 | Outpatient (BNVA) | payer OTHER, SELFPAY | PROVIDERS: PCP Family Medicine; Visit Provider Specialist | DX: Z48.89 Encounter for other specified surgical aftercare (principal) | CPT/HCPCS: 73502 ==

== ENCOUNTER → 2021-01-22 10:24 | Outpatient (BNVA) | payer OTHER, SELFPAY | PROVIDERS: PCP Family Medicine; Visit Provider Specialist | DX: S72.142A Displaced intertrochanteric fracture of left femur, initial encounter for closed fracture (principal); Z48.89 Encounter for other specified surgical aftercare | CPT/HCPCS: 73502 ==

== ENCOUNTER 2021-06-05 13:40 | Outpatient (RCR) | payer OTHER, SELFPAY | END 2021-06-23 23:59 | disposition home or self-care (01) | LOC: SPT 13:40 | PROVIDERS: PCP Family Medicine; Referring Provider Family Medicine; Visit Provider Family Medicine | DX: M25.511 Pain in right shoulder (principal) | CPT/HCPCS: 97110; 97161 ==

== ENCOUNTER 2021-06-24 06:00 | Outpatient (RCR) | payer OTHER, SELFPAY | END 2021-07-24 23:59 | disposition home or self-care (01) | LOC: SPT 06:00 | PROVIDERS: PCP Family Medicine; Referring Provider Family Medicine; Visit Provider Family Medicine | DX: M25.511 Pain in right shoulder (principal) | CPT/HCPCS: 97110 ==

== ENCOUNTER → 2021-08-06 13:55 | Outpatient (BNVA) | payer OTHER, SELFPAY | PROVIDERS: PCP Family Medicine; Referring Provider Family Medicine; Visit Provider Specialist | DX: M75.81 Other shoulder lesions, right shoulder (principal) | CPT/HCPCS: 73030; 99213 ==